=== PATIENT | male | born 1970 | race Caucasian/White ===

== ENCOUNTER 2017-12-07 12:30 | Inpatient (IN) | payer MEDICAID ==
[~2017-12-07] VITALS: Ht 175.3 cm; Wt 147.4 kg
[~2017-12-07 12:30] MED LIST: ALBU2.5V10 INH; EPIN0.3P3 SQ; GUAI120L55 PO; LANTUS SQ; LIDO700A32 TOP; LISI-222 PO; MELO-100 PO; METF500T6 PO; NICO-687 TOP; ONDA8TAB9 PO; SAXA5TAB PO; ZOL50T PO
[2017-12-07 13:17] LABS: CLARITY,URINE CLEAR (Clear); COLOR,URINE STRAW (Yellow); GLUCOSE, URINE >=1000 mg/dl (Neg); KETONES,URINE NEGATIVE (Neg); LEUKOCYTE ESTERASE ,URINE NEGATIVE (Neg); NITRITES, URINE NEGATIVE (Neg); OCCULT BLOOD,URINE NEGATIVE (Neg); PROTEIN,URINE NEGATIVE (Neg); UROBILINOGEN,URINE 0.2 E.U/dL (0.2-1.0)
[2017-12-07 13:19] LABS: UA COLLECTION TYPE CLN CATCH MIDSTREAM
[2017-12-07 13:23] LABS: BASOPHILS % (AUTO) 0.2 % (0-1); EOSINOPHILS # (AUTO) 7.9 X10'3 (0-0.9); HEMATOCRIT 46.7 % (42.0-52.0); HEMOGLOBIN 15.9 g/dl (14.0-17.9); LYMPHOCYTES # (AUTO) 3.1 X10'3 (1.1-4.8); LYMPHOCYTES % (AUTO) 14.7 % (21-51); MEAN CORPUSCULAR HEMOGLOBIN 30.7 PG (27.0-31.0); MEAN CORPUSCULAR HGB CONC 34.1 % (33.0-36.5); MEAN CORPUSCULAR VOLUME 90.1 FL (78-98); MEAN PLATELET VOLUME 7.1 FL (7.4-10.4); MONOCYTES # (AUTO) 0.6 X10'3 (0-0.9); MONOCYTES % (AUTO) 2.8 % (2-12); NEUTROPHILS # (AUTO) 9.7 X10'3 (1.8-7.7); NEUTROPHILS % (AUTO) 45.5 % (42-75); PLATELET COUNT 329 X10'3 (140-440); RED BLOOD COUNT 5.19 X10'6 (4.70-6.10); RED CELL DISTRIBUTION WIDTH 14.7 % (11.5-14.5); WHITE BLOOD COUNT 21.4 X10'3 (4.5-11.0)
[2017-12-07 13:29] LABS: BACTERIA,URINE NONE SEEN /HPF (Neg); MUCUS STRANDS NONE SEEN /LPF (Neg); RBC,URINE NONE SEEN /HPF (0-2); SQUAMOUS EPITHELIAL CELL,UR NONE SEEN /LPF (FEW); WBC,URINE NONE SEEN /HPF (0-4)
[2017-12-07 13:35] LABS: INR 1.1 INR; PARTIAL THROMBOPLASTIN TIME 25 SECONDS (22-32); PROTHROMBIN TIME 11.3 SECONDS (9.0-12.0)
[2017-12-07 13:36] LABS: EOSINOPHILS % (AUTO) 36.8 % (0-6)
[2017-12-07 13:41] LABS: ALANINE AMINOTRANSFERASE 70 U/L (12-78); ALBUMIN 3.8 G/DL (3.4-5.0); ALBUMIN/GLOBULIN RATIO 0.9 (1.1-1.5); ALKALINE PHOSPHATASE 109 IU/L (46-116); ANION GAP 12 (8-16); ASPARTATE AMINO TRANSFERASE 27 U/L (10-37); BILIRUBIN,TOTAL 0.2 MG/DL (0.1-1.0); BLOOD UREA NITROGEN 10 MG/DL (7-18); BUN/CREATININE RATIO 9.3 (5.4-32.0); CALCIUM 8.9 MG/DL (8.5-10.1); CHLORIDE 97 MMOL/L (99-107); CREATININE 1.07 MG/DL (0.60-1.10); GLUCOSE 334 MG/DL (70-104); POTASSIUM 4.2 MMOL/L (3.5-5.1); SODIUM 131 MMOL/L (135-145); TOTAL CARBON DIOXIDE 22.4 MMOL/L (24-32); TOTAL PROTEIN 8.2 G/DL (6.4-8.2); eGFR 75 ML/MIN
[2017-12-07] MEDS ORDERED: metroNIDAZOLE-Flagyl 500mg/NS 100 ML IV STA (13:42)
[2017-12-07] MEDS ORDERED: morphine 4 MG/ML inj SYRINge IV PRN (13:45)
[2017-12-07] MEDS ORDERED: ondansetron/PF 4mg/2ml inj IV ONE (13:45)
[2017-12-07] MEDS ORDERED: normal saline 1000ML IV soln IVB ONE (13:45)
[2017-12-07] MEDS ORDERED: normal saline 1000ML IV soln IV ONE (13:55)
[2017-12-07] MEDS: ciprofloxacin lact 400MG/200ML 200 ML IV SCH ×2 (15:13→20:13)
[2017-12-07] MEDS ORDERED: mag hydrox/Alum hydrox/simeth 30ml oral suspension PO PRN (16:45)
[2017-12-07] MEDS ORDERED: magnesium 4gm in 100ml NS 100 ML IV PRN (16:45)
[2017-12-07] MEDS ORDERED: potassium Cl 20 mEq SR tablet PO PRN ×2 (16:45)
[2017-12-07] MEDS ORDERED: ondansetron/PF 4mg/2ml inj IV PRN (16:45)
[2017-12-07] MEDS ORDERED: magnesium 2GM in 50ml NS 50 ML IV PRN (16:45)
[2017-12-07] MEDS ORDERED: potassium Cl 40MEQ/NS 500ml 500 ML IV PRN ×2 (16:45)
[2017-12-07] MEDS ORDERED: magnesium Cl slow-release 64mg tablet PO PRN (16:45)
[2017-12-07] MEDS ORDERED: magnesium hydroxide 30ml (MOM) UD suspension PO PRN (16:45)
[2017-12-07] MEDS ORDERED: CefTRIAXone/D5W-Rocephin 1gm 50 ML IV SCH (16:50)
[2017-12-07] MEDS: normal saline 1000ml 1,000 ML IV SCH ×2 (17:17→21:18)
[2017-12-07] MEDS ORDERED: dextrose 50%-water 50ml dispensing syringe IV PRN ×2 (17:25)
[2017-12-07] MEDS ORDERED: MESSAGE TO PHARMACY PO ONE (17:25)
[2017-12-07] MEDS ORDERED: dextrose ORAL solution 15 GM/59 ML bottle PO PRN ×2 (17:25)
[2017-12-07] MEDS ORDERED: glucagon, human recombinant 1mg kit SUBCUT PRN (17:25)
[2017-12-07 17:40] LABS: HEMOGLOBIN A1C 9.4 % (4.5-6.2)
[2017-12-07] MEDS: levoFLOXACIN-Levaquin 500mg/D5 100 ML IV SCH (18:33)
[2017-12-07] MEDS: heparin, porcine 5000 units/ml vial SQ SCH (20:17)
[2017-12-07 20:30] VITALS: BP 147/79
[2017-12-07] MEDS: diatr meglu/diatrizoate 30ml oral sol.-(3 dose) bottle PO SCH (20:54)
[2017-12-07] MEDS: insulin glargine (Lantus) pen - multi-dose SQ SCH (21:07)
[2017-12-07] MEDS: HYDROmorphone 1 mg/ml syringe IV PRN (21:18)
[2017-12-07] MEDS: metroNIDAZOLE-Flagyl 500mg/NS 100 ML IV SCH (23:22)
[2017-12-08] VITALS: BP 136/76
[2017-12-08 07:00] VITALS: BP 129/64
[2017-12-08] MEDS: diatr meglu/diatrizoate 30ml oral sol.-(3 dose) bottle PO SCH ×2 (07:46→10:20)
[2017-12-08] MEDS: heparin, porcine 5000 units/ml vial SQ SCH ×2 (07:47→19:14)
[2017-12-08] MEDS: metroNIDAZOLE-Flagyl 500mg/NS 100 ML IV SCH ×3 (07:47→23:45)
[2017-12-08 07:55] LABS: BASOPHILS # (AUTO) 0.1 X10'3 (0-0.2); BASOPHILS % (AUTO) 0.5 % (0-1); EOSINOPHILS % (AUTO) 39.1 % (0-6); HEMATOCRIT 40.3 % (42.0-52.0); HEMOGLOBIN 13.6 g/dl (14.0-17.9); LYMPHOCYTES % (AUTO) 16.7 % (21-51); MEAN CORPUSCULAR HEMOGLOBIN 30.3 PG (27.0-31.0); MEAN CORPUSCULAR HGB CONC 33.6 % (33.0-36.5); MEAN CORPUSCULAR VOLUME 90.3 FL (78-98); MONOCYTES # (AUTO) 0.5 X10'3 (0-0.9); MONOCYTES % (AUTO) 2.8 % (2-12); NEUTROPHILS # (AUTO) 7.3 X10'3 (1.8-7.7); NEUTROPHILS % (AUTO) 40.9 % (42-75); PLATELET COUNT 199 X10'3 (140-440); RED BLOOD COUNT 4.47 X10'6 (4.70-6.10); RED CELL DISTRIBUTION WIDTH 14.5 % (11.5-14.5); WHITE BLOOD COUNT 17.8 X10'3 (4.5-11.0)
[2017-12-08] MEDS: K and/or MAG REPLACEMENT MC SCH (08:00)
[2017-12-08] MEDS: ciprofloxacin lact 400MG/200ML 200 ML IV SCH ×2 (08:00→19:12)
[2017-12-08] MEDS: normal saline 1000ml 1,000 ML IV SCH ×2 (09:20→22:43)
[2017-12-08] MEDS ORDERED: iohexol 300mg/ml 100ml inj. ONE (10:30)
[2017-12-08] MEDS: MESSAGE TO NURSING PO SCH (10:40)
[2017-12-08 11:00] VITALS: BP 134/78
[2017-12-08] MEDS ORDERED: METF-436 PO (11:36)
[2017-12-08] MEDS ORDERED: SAXA5TAB PO (11:42)
[2017-12-08] MEDS ORDERED: SERT25TA PO ×2 (11:46)
[2017-12-08] MEDS ORDERED: LISI-600 PO (11:48)
[2017-12-08] MEDS ORDERED: INSU100I31 SQ (11:49)
[2017-12-08] MEDS ORDERED: INSU100I7 SQ (11:52)
[2017-12-08] MEDS: levoFLOXACIN-Levaquin 500mg/D5 100 ML IV SCH (12:00)
[2017-12-08 12:35] LABS: ALANINE AMINOTRANSFERASE 59 U/L (12-78); ALBUMIN/GLOBULIN RATIO 0.8 (1.1-1.5); ALKALINE PHOSPHATASE 80 IU/L (46-116); ANION GAP 10 (8-16); ASPARTATE AMINO TRANSFERASE 29 U/L (10-37); BILIRUBIN,TOTAL 0.2 MG/DL (0.1-1.0); BLOOD UREA NITROGEN 6 MG/DL (7-18); BUN/CREATININE RATIO 6.5 (5.4-32.0); CHLORIDE 103 MMOL/L (99-107); CREATININE 0.93 MG/DL (0.60-1.10); GLUCOSE 206 MG/DL (70-104); MAGNESIUM 1.7 MG/DL (1.5-2.4); POTASSIUM 4.1 MMOL/L (3.5-5.1); SODIUM 137 MMOL/L (135-145); TOTAL CARBON DIOXIDE 23.6 MMOL/L (24-32); TOTAL PROTEIN 6.7 G/DL (6.4-8.2); eGFR 88 ML/MIN
[2017-12-08] MEDS: insulin Lispro (HumaLOG) vial - multi-dose SQ SCH ×2 (14:05→19:10)
[2017-12-08 16:48] LABS: C DIFF ANTIGEN NEGATIVE (NEGATIVE); C DIFF SPECIMEN=DIARRHEA? ACCEPTABLE; C DIFFICILE TOXINS A&B NEGATIVE (Neg)
[2017-12-08 18:00] VITALS: BP 150/84
[2017-12-08] MEDS: lactobacillus rhamnosus 10,000 MMU CELLS/CAPSULE PO SCH (19:12)
[2017-12-08] MEDS: insulin glargine (Lantus) pen - multi-dose SQ SCH (21:16)
[2017-12-09] VITALS: BP 137/75
[2017-12-09] MEDS: normal saline 1000ml 1,000 ML IV SCH ×2 (02:31→21:26)
[2017-12-09 05:49] LABS: ALANINE AMINOTRANSFERASE 50 U/L (12-78); ALBUMIN 2.9 G/DL (3.4-5.0); ALBUMIN/GLOBULIN RATIO 0.8 (1.1-1.5); ALKALINE PHOSPHATASE 75 IU/L (46-116); ANION GAP 6 (8-16); ASPARTATE AMINO TRANSFERASE 19 U/L (10-37); BILIRUBIN,TOTAL 0.2 MG/DL (0.1-1.0); BLOOD UREA NITROGEN 8 MG/DL (7-18); BUN/CREATININE RATIO 8.2 (5.4-32.0); CALCIUM 8.5 MG/DL (8.5-10.1); CHLORIDE 106 MMOL/L (99-107); CREATININE 0.98 MG/DL (0.60-1.10); GLUCOSE 156 MG/DL (70-104); MAGNESIUM 1.8 MG/DL (1.5-2.4); POTASSIUM 3.9 MMOL/L (3.5-5.1); SODIUM 139 MMOL/L (135-145); TOTAL CARBON DIOXIDE 26.6 MMOL/L (24-32); TOTAL PROTEIN 6.4 G/DL (6.4-8.2); eGFR 83 ML/MIN
[2017-12-09 05:56] LABS: BASOPHILS % (AUTO) 0.3 % (0-1); EOSINOPHILS # (AUTO) 5.9 X10'3 (0-0.9); EOSINOPHILS % (AUTO) 38.9 % (0-6); HEMATOCRIT 37.2 % (42.0-52.0); HEMOGLOBIN 12.8 g/dl (14.0-17.9); LYMPHOCYTES # (AUTO) 3.2 X10'3 (1.1-4.8); LYMPHOCYTES % (AUTO) 20.9 % (21-51); MEAN CORPUSCULAR HEMOGLOBIN 30.7 PG (27.0-31.0); MEAN CORPUSCULAR HGB CONC 34.3 % (33.0-36.5); MEAN CORPUSCULAR VOLUME 89.4 FL (78-98); MEAN PLATELET VOLUME 7.3 FL (7.4-10.4); MONOCYTES # (AUTO) 0.7 X10'3 (0-0.9); MONOCYTES % (AUTO) 4.9 % (2-12); NEUTROPHILS # (AUTO) 5.3 X10'3 (1.8-7.7); PLATELET COUNT 256 X10'3 (140-440); RED BLOOD COUNT 4.16 X10'6 (4.70-6.10); RED CELL DISTRIBUTION WIDTH 14.2 % (11.5-14.5); WHITE BLOOD COUNT 15.2 X10'3 (4.5-11.0)
[2017-12-09] MEDS ORDERED: NORMAL SALINE IV ONE (07:00)
[2017-12-09] MEDS ORDERED: SINCALIDE IV ONE (07:00)
[2017-12-09 07:28] VITALS: BP 124/67
[2017-12-09] MEDS: K and/or MAG REPLACEMENT MC SCH (08:00)
[2017-12-09] MEDS: lactobacillus rhamnosus 10,000 MMU CELLS/CAPSULE PO SCH ×2 (08:00→19:06)
[2017-12-09] MEDS: heparin, porcine 5000 units/ml vial SQ SCH ×2 (08:00→19:06)
[2017-12-09] MEDS: ciprofloxacin lact 400MG/200ML 200 ML IV SCH ×2 (08:00→13:44)
[2017-12-09 11:00] VITALS: BP 134/69
[2017-12-09] MEDS: metroNIDAZOLE-Flagyl 500mg/NS 100 ML IV SCH ×2 (11:02→16:00)
[2017-12-09] MEDS: levoFLOXACIN-Levaquin 500mg/D5 100 ML IV SCH (12:17)
[2017-12-09] MEDS: insulin Lispro (HumaLOG) vial - multi-dose SQ SCH ×2 (13:49→19:05)
[2017-12-09] MEDS: MESSAGE TO NURSING PO SCH (19:15)
[2017-12-09 20:00] VITALS: BP 128/71
[2017-12-09] MEDS: insulin glargine (Lantus) pen - multi-dose SQ SCH (21:22)
[2017-12-10] VITALS: BP 119/66
[2017-12-10] MEDS: metroNIDAZOLE-Flagyl 500mg/NS 100 ML IV SCH ×4 (00:06→23:47)
[2017-12-10 05:20] LABS: BASOPHILS % (AUTO) 0.3 % (0-1); EOSINOPHILS # (AUTO) 4.7 X10'3 (0-0.9); HEMATOCRIT 37.4 % (42.0-52.0); HEMOGLOBIN 12.7 g/dl (14.0-17.9); LYMPHOCYTES # (AUTO) 2.9 X10'3 (1.1-4.8); LYMPHOCYTES % (AUTO) 18.8 % (21-51); MEAN CORPUSCULAR HEMOGLOBIN 30.9 PG (27.0-31.0); MEAN CORPUSCULAR VOLUME 90.9 FL (78-98); MONOCYTES # (AUTO) 0.6 X10'3 (0-0.9); MONOCYTES % (AUTO) 4.2 % (2-12); NEUTROPHILS % (AUTO) 45.7 % (42-75); PLATELET COUNT 256 X10'3 (140-440); RED BLOOD COUNT 4.12 X10'6 (4.70-6.10); RED CELL DISTRIBUTION WIDTH 14.7 % (11.5-14.5); WHITE BLOOD COUNT 15.3 X10'3 (4.5-11.0)
[2017-12-10 05:41] LABS: ALANINE AMINOTRANSFERASE 44 U/L (12-78); ALBUMIN 2.8 G/DL (3.4-5.0); ALBUMIN/GLOBULIN RATIO 0.8 (1.1-1.5); ALKALINE PHOSPHATASE 77 IU/L (46-116); ANION GAP 6 (8-16); ASPARTATE AMINO TRANSFERASE 18 U/L (10-37); BILIRUBIN,TOTAL 0.3 MG/DL (0.1-1.0); BLOOD UREA NITROGEN 9 MG/DL (7-18); BUN/CREATININE RATIO 10.2 (5.4-32.0); CALCIUM 8.5 MG/DL (8.5-10.1); CHLORIDE 106 MMOL/L (99-107); CREATININE 0.88 MG/DL (0.60-1.10); GLUCOSE 164 MG/DL (70-104); MAGNESIUM 1.7 MG/DL (1.5-2.4); SODIUM 139 MMOL/L (135-145); TOTAL PROTEIN 6.3 G/DL (6.4-8.2); eGFR > 90 ML/MIN
[2017-12-10 07:00] VITALS: BP 149/66
[2017-12-10] MEDS: K and/or MAG REPLACEMENT MC SCH (07:13)
[2017-12-10] MEDS: MESSAGE TO NURSING PO SCH (07:14)
[2017-12-10] MEDS: heparin, porcine 5000 units/ml vial SQ SCH ×2 (07:25→21:28)
[2017-12-10] MEDS: lactobacillus rhamnosus 10,000 MMU CELLS/CAPSULE PO SCH ×2 (07:25→21:27)
[2017-12-10] MEDS: levoFLOXACIN-Levaquin 500mg/D5 100 ML IV SCH (08:30)
[2017-12-10] MEDS: normal saline 1000ml 1,000 ML IV SCH ×3 (08:31→23:48)
[2017-12-10] MEDS: insulin Lispro (HumaLOG) vial - multi-dose SQ SCH ×3 (08:41→19:17)
[2017-12-10] MEDS: HYDROmorphone 1 mg/ml syringe IV PRN (10:10)
[2017-12-10 12:03] LABS: LIPASE < 50 U/L (73-393)
[2017-12-10] MEDS: pantoprazole 40mg Tablet.DR PO SCH (14:45)
[2017-12-10 20:00] VITALS: BP 142/78
[2017-12-10] MEDS: insulin glargine (Lantus) pen - multi-dose SQ SCH (21:31)
[2017-12-11] VITALS: BP 113/60
[2017-12-11 05:24] LABS: BASOPHILS # (AUTO) 0.1 X10'3 (0-0.2); BASOPHILS % (AUTO) 0.5 % (0-1); EOSINOPHILS # (AUTO) 6.4 X10'3 (0-0.9); EOSINOPHILS % (AUTO) 37.6 % (0-6); HEMATOCRIT 37.7 % (42.0-52.0); HEMOGLOBIN 12.8 g/dl (14.0-17.9); LYMPHOCYTES # (AUTO) 3.5 X10'3 (1.1-4.8); LYMPHOCYTES % (AUTO) 20.5 % (21-51); MEAN CORPUSCULAR HEMOGLOBIN 30.4 PG (27.0-31.0); MEAN CORPUSCULAR HGB CONC 33.8 % (33.0-36.5); MEAN CORPUSCULAR VOLUME 89.9 FL (78-98); MEAN PLATELET VOLUME 7.2 FL (7.4-10.4); MONOCYTES # (AUTO) 0.6 X10'3 (0-0.9); MONOCYTES % (AUTO) 3.5 % (2-12); NEUTROPHILS # (AUTO) 6.5 X10'3 (1.8-7.7); NEUTROPHILS % (AUTO) 37.9 % (42-75); PLATELET COUNT 272 X10'3 (140-440); RED BLOOD COUNT 4.19 X10'6 (4.70-6.10); RED CELL DISTRIBUTION WIDTH 14.4 % (11.5-14.5)
[2017-12-11 05:42] LABS: ALANINE AMINOTRANSFERASE 50 U/L (12-78); ALBUMIN 2.8 G/DL (3.4-5.0); ALBUMIN/GLOBULIN RATIO 0.8 (1.1-1.5); ALKALINE PHOSPHATASE 76 IU/L (46-116); ANION GAP 10 (8-16); ASPARTATE AMINO TRANSFERASE 34 U/L (10-37); BILIRUBIN,TOTAL 0.2 MG/DL (0.1-1.0); BLOOD UREA NITROGEN 9 MG/DL (7-18); BUN/CREATININE RATIO 9.8 (5.4-32.0); CALCIUM 8.5 MG/DL (8.5-10.1); CHLORIDE 104 MMOL/L (99-107); CREATININE 0.92 MG/DL (0.60-1.10); GLUCOSE 173 MG/DL (70-104); MAGNESIUM 1.5 MG/DL (1.5-2.4); SODIUM 139 MMOL/L (135-145); TOTAL CARBON DIOXIDE 25.1 MMOL/L (24-32); TOTAL PROTEIN 6.2 G/DL (6.4-8.2); eGFR 89 ML/MIN
[2017-12-11 07:14] VITALS: BP 122/78
[2017-12-11] MEDS: K and/or MAG REPLACEMENT MC SCH (08:00)
[2017-12-11] MEDS: metroNIDAZOLE-Flagyl 500mg/NS 100 ML IV SCH ×2 (08:08→17:36)
[2017-12-11] MEDS: levoFLOXACIN-Levaquin 500mg/D5 100 ML IV SCH (08:09)
[2017-12-11] MEDS: heparin, porcine 5000 units/ml vial SQ SCH ×2 (08:09→21:29)
[2017-12-11] MEDS: lactobacillus rhamnosus 10,000 MMU CELLS/CAPSULE PO SCH ×2 (08:09→21:30)
[2017-12-11] MEDS: pantoprazole 40mg Tablet.DR PO SCH (08:09)
[2017-12-11] MEDS: insulin Lispro (HumaLOG) vial - multi-dose SQ SCH ×3 (08:20→19:13)
[2017-12-11] MEDS: normal saline 1000ml 1,000 ML IV SCH (11:58)
[2017-12-11 14:09] LABS: HIV ANTIBODY 1&2 RAPID NON-REACTIVE (Neg)
[2017-12-11 15:27] LABS: CRYPTOSPORIDIUM AG NEGATIVE (Neg); GIARDIA LAMBLIA AG NEGATIVE (Neg)
[2017-12-11 20:00] VITALS: BP 139/87
[2017-12-11] MEDS: sertraline 50mg tablet PO SCH (21:30)
[2017-12-11] MEDS: insulin glargine (Lantus) pen - multi-dose SQ SCH (21:34)
[2017-12-12] MEDS: metroNIDAZOLE-Flagyl 500mg/NS 100 ML IV SCH ×2 (00:11→08:39)
[2017-12-12] MEDS: normal saline 1000ml 1,000 ML IV SCH ×2 (00:11→06:43)
[2017-12-12 05:35] LABS: BASOPHILS # (AUTO) 0.1 X10'3 (0-0.2); BASOPHILS % (AUTO) 0.5 % (0-1); EOSINOPHILS # (AUTO) 5.8 X10'3 (0-0.9); EOSINOPHILS % (AUTO) 35.4 % (0-6); HEMOGLOBIN 12.7 g/dl (14.0-17.9); MEAN CORPUSCULAR HGB CONC 34.3 % (33.0-36.5); MEAN CORPUSCULAR VOLUME 90.3 FL (78-98); MEAN PLATELET VOLUME 7.3 FL (7.4-10.4); MONOCYTES # (AUTO) 0.6 X10'3 (0-0.9); MONOCYTES % (AUTO) 3.4 % (2-12); NEUTROPHILS % (AUTO) 42.7 % (42-75); PLATELET COUNT 265 X10'3 (140-440); RED CELL DISTRIBUTION WIDTH 14.5 % (11.5-14.5); WHITE BLOOD COUNT 16.5 X10'3 (4.5-11.0)
[2017-12-12 05:42] LABS: ALANINE AMINOTRANSFERASE 55 U/L (12-78); ALBUMIN 2.9 G/DL (3.4-5.0); ALBUMIN/GLOBULIN RATIO 0.8 (1.1-1.5); ALKALINE PHOSPHATASE 76 IU/L (46-116); ANION GAP 8 (8-16); ASPARTATE AMINO TRANSFERASE 31 U/L (10-37); BILIRUBIN,TOTAL 0.3 MG/DL (0.1-1.0); BLOOD UREA NITROGEN 9 MG/DL (7-18); BUN/CREATININE RATIO 10.1 (5.4-32.0); CALCIUM 8.7 MG/DL (8.5-10.1); CHLORIDE 106 MMOL/L (99-107); CREATININE 0.89 MG/DL (0.60-1.10); GLUCOSE 119 MG/DL (70-104); MAGNESIUM 1.6 MG/DL (1.5-2.4); POTASSIUM 3.8 MMOL/L (3.5-5.1); SODIUM 139 MMOL/L (135-145); TOTAL CARBON DIOXIDE 25.3 MMOL/L (24-32); TOTAL PROTEIN 6.4 G/DL (6.4-8.2); eGFR > 90 ML/MIN
[2017-12-12 07:00] VITALS: BP 123/66
[2017-12-12] MEDS: K and/or MAG REPLACEMENT MC SCH (08:00)
[2017-12-12] MEDS: insulin Lispro (HumaLOG) vial - multi-dose SQ SCH (08:35)
[2017-12-12] MEDS: levoFLOXACIN-Levaquin 500mg/D5 100 ML IV SCH (08:39)
[2017-12-12] MEDS: sertraline 50mg tablet PO SCH (08:42)
[2017-12-12] MEDS: lactobacillus rhamnosus 10,000 MMU CELLS/CAPSULE PO SCH (08:42)
[2017-12-12] MEDS: pantoprazole 40mg Tablet.DR PO SCH (08:42)
[2017-12-12] MEDS: heparin, porcine 5000 units/ml vial SQ SCH (08:42)
== END 2017-12-12 12:40 | disposition home or self-care (01) | DRG 720 ==
LOC: ER 12:31 → ED HOLD 16:42 → SUR 3N 20:25
PROVIDERS: ADMIT Internal Medicine; ATTEND Family Medicine
PROC: 5A09357 Assistance with Respiratory Ventilation, Less than 24 Consecutive Hours, Continuous Positive Airway Pressure (ICD-10-PCS; principal; 2017-12-07)
PROC: 5A09357 Assistance with Respiratory Ventilation, Less than 24 Consecutive Hours, Continuous Positive Airway Pressure (ICD-10-PCS; 2017-12-08)
PROC: BW211ZZ Computerized Tomography (CT Scan) of Abdomen and Pelvis using Low Osmolar Contrast (ICD-10-PCS; 2017-12-08)
PROC: CF141ZZ Planar Nuclear Medicine Imaging of Gallbladder using Technetium 99m (Tc-99m) (ICD-10-PCS; 2017-12-09)
DX: A41.9 Sepsis, unspecified organism (principal); E11.65 Type 2 diabetes mellitus with hyperglycemia; I10 Essential (primary) hypertension; E66.01 Morbid (severe) obesity due to excess calories; G89.29 Other chronic pain; K52.9 Noninfective gastroenteritis and colitis, unspecified; K57.90 Diverticulosis of intestine, part unspecified, without perforation or abscess without bleeding; Z68.42 Body mass index [BMI] 45.0-49.9, adult; Z88.6 Allergy status to analgesic agent; Z88.8 Allergy status to other drugs, medicaments and biological substances; Z88.0 Allergy status to penicillin; Z79.899 Other long term (current) drug therapy; Z87.891 Personal history of nicotine dependence; Z56.0 Unemployment, unspecified; Z79.4 Long term (current) use of insulin; Z79.84 Long term (current) use of oral hypoglycemic drugs
CPT/HCPCS: 36415; 71045; 74176; 74177; 78227; 80053; 81001; 82948; 83036; 83605; 83690; 83735; 84145; 85025; 85610; 85651; 85730; 86703; 87040; 87045; 87046; 87070; 87324; 87328; 87329; 87336; 87449; 89055; 94660; 94760; 96365; 96375; 99285; A9537; J0744; J1170; J1644; J1815; J1956; J2270; J2405; J2805; J3490; J7030; J7040; Q9963; Q9967

== ENCOUNTER 2018-03-14 14:39 | Emergency (ER) | payer MEDICAID ==
[~2018-03-14] VITALS: Ht 175.3 cm; Wt 145.0 kg
[~2018-03-14 14:39] MED LIST changes: -ALBU2.5V10 INH; +COLC1TAB2 PO; -EPIN0.3P3 SQ; -GUAI120L55 PO; +INSU100I7 SQ; -LANTUS SQ; -LIDO700A32 TOP; -LISI-222 PO; -MELO-100 PO; +METF-436 PO; -METF500T6 PO; -NICO-687 TOP; -ONDA8TAB9 PO; +SERT25TA PO; -ZOL50T PO
[2018-03-14 16:05] VITALS: BP 156/60
[2018-03-14] MEDS ORDERED: SULF1TAB49 PO (16:37)
== END 2018-03-14 17:45 | disposition home or self-care (01) ==
LOC: ER 14:39
DX: L03.115 Cellulitis of right lower limb (principal); I10 Essential (primary) hypertension; E11.9 Type 2 diabetes mellitus without complications; G89.29 Other chronic pain; Z88.0 Allergy status to penicillin; Z88.5 Allergy status to narcotic agent; Z79.2 Long term (current) use of antibiotics; Z79.84 Long term (current) use of oral hypoglycemic drugs; Z79.899 Other long term (current) drug therapy; Z56.0 Unemployment, unspecified
CPT/HCPCS: 93971; 99284

== ENCOUNTER 2018-07-20 10:47 | Emergency (ER) | payer MEDICAID ==
[~2018-07-20] VITALS: Ht 175.3 cm; Wt 147.0 kg
[2018-07-20 12:12] LABS: BASOPHILS % (AUTO) 0.3 % (0-1); EOSINOPHILS # (AUTO) 1.1 X10'3 (0-0.9); EOSINOPHILS % (AUTO) 9.3 % (0-6); HEMOGLOBIN 14.5 g/dl (14.0-17.9); LYMPHOCYTES # (AUTO) 2.1 X10'3 (1.1-4.8); LYMPHOCYTES % (AUTO) 17.2 % (21-51); MEAN CORPUSCULAR HGB CONC 33.8 % (33.0-36.5); MEAN CORPUSCULAR VOLUME 88.7 FL (78-98); MEAN PLATELET VOLUME 6.8 FL (7.4-10.4); MONOCYTES # (AUTO) 0.4 X10'3 (0-0.9); MONOCYTES % (AUTO) 3.5 % (2-12); NEUTROPHILS # (AUTO) 8.4 X10'3 (1.8-7.7); NEUTROPHILS % (AUTO) 69.7 % (42-75); PLATELET COUNT 368 X10'3 (140-440); RED BLOOD COUNT 4.85 X10'6 (4.70-6.10); RED CELL DISTRIBUTION WIDTH 14.2 % (11.5-14.5); WHITE BLOOD COUNT 12.1 X10'3 (4.5-11.0)
[2018-07-20 12:27] LABS: ALANINE AMINOTRANSFERASE 36 U/L (12-78); ALBUMIN 3.2 G/DL (3.4-5.0); ALBUMIN/GLOBULIN RATIO 0.8 (1.1-1.5); ALKALINE PHOSPHATASE 86 IU/L (46-116); ANION GAP 10 (8-16); ASPARTATE AMINO TRANSFERASE 11 U/L (10-37); BILIRUBIN,TOTAL 0.3 MG/DL (0.1-1.0); BLOOD UREA NITROGEN 7 MG/DL (7-18); BUN/CREATININE RATIO 8.6 (5.4-32.0); CALCIUM 8.4 MG/DL (8.5-10.1); CHLORIDE 98 MMOL/L (99-107); CREATININE 0.81 MG/DL (0.60-1.10); GLUCOSE 265 MG/DL (70-104); LIPASE < 50 U/L (73-393); POTASSIUM 4.1 MMOL/L (3.5-5.1); SODIUM 133 MMOL/L (135-145); TOTAL CARBON DIOXIDE 25.1 MMOL/L (24-32); TOTAL PROTEIN 7.4 G/DL (6.4-8.2); eGFR > 90 ML/MIN
[2018-07-20 13:15] LABS: CLARITY,URINE CLEAR (Clear); COLOR,URINE YELLOW (Yellow); GLUCOSE, URINE 250 mg/dl (Neg); KETONES,URINE NEGATIVE (Neg); LEUKOCYTE ESTERASE ,URINE NEGATIVE (Neg); NITRITES, URINE NEGATIVE (Neg); OCCULT BLOOD,URINE NEGATIVE (Neg); PROTEIN,URINE NEGATIVE (Neg); UROBILINOGEN,URINE 0.2 E.U/dL (0.2-1.0)
[2018-07-20 13:18] LABS: UA COLLECTION TYPE NON-SPECIFIED
[2018-07-20 13:26] VITALS: BP 153/106
== END 2018-07-20 13:32 | disposition home or self-care (01) ==
LOC: ER 10:47
DX: K42.9 Umbilical hernia without obstruction or gangrene (principal); I10 Essential (primary) hypertension; E11.9 Type 2 diabetes mellitus without complications; F17.200 Nicotine dependence, unspecified, uncomplicated; Z98.890 Other specified postprocedural states; Z56.0 Unemployment, unspecified; Z88.0 Allergy status to penicillin; Z88.5 Allergy status to narcotic agent; Z79.4 Long term (current) use of insulin; Z79.899 Other long term (current) drug therapy
CPT/HCPCS: 36415; 74176; 80053; 81003; 83690; 85025; 99284

== ENCOUNTER 2019-08-31 15:22 | Emergency (ER) | payer MEDICAID ==
[~2019-08-31] VITALS: Ht 175.3 cm; Wt 142.3 kg
[2019-08-31] MEDS ORDERED: HYDROcodone/acetaminophen 10/325mg tab PO ONE (16:20)
[2019-08-31 16:58] LABS: BASOPHILS # (AUTO) 0.1 X10'3 (0-0.2); BASOPHILS % (AUTO) 0.5 % (0-1); EOSINOPHILS # (AUTO) 0.3 X10'3 (0-0.9); EOSINOPHILS % (AUTO) 2.2 % (0-6); HEMATOCRIT 41.8 % (42.0-52.0); HEMOGLOBIN 14.3 g/dl (14.0-17.9); LYMPHOCYTES # (AUTO) 1.6 X10'3 (1.1-4.8); LYMPHOCYTES % (AUTO) 11.5 % (21-51); MEAN CORPUSCULAR HEMOGLOBIN 30.4 PG (27.0-31.0); MEAN CORPUSCULAR HGB CONC 34.2 g/dL (33.0-36.5); MEAN CORPUSCULAR VOLUME 88.8 FL (78-98); MEAN PLATELET VOLUME 7.3 FL (7.4-10.4); MONOCYTES # (AUTO) 0.7 X10'3 (0-0.9); MONOCYTES % (AUTO) 4.8 % (2-12); NEUTROPHILS # (AUTO) 11.5 X10'3 (1.8-7.7); PLATELET COUNT 295 X10'3 (140-440); RED BLOOD COUNT 4.71 X10'6 (4.70-6.10); RED CELL DISTRIBUTION WIDTH 14.3 % (11.5-14.5); WHITE BLOOD COUNT 14.2 X10'3 (4.5-11.0)
[2019-08-31 17:20] LABS: ALANINE AMINOTRANSFERASE 32 U/L (12-78); ALBUMIN 3.5 G/DL (3.4-5.0); ALBUMIN/GLOBULIN RATIO 0.8 (1.1-1.5); ALKALINE PHOSPHATASE 99 IU/L (46-116); ANION GAP 9 (8-16); ASPARTATE AMINO TRANSFERASE 13 U/L (10-37); BILIRUBIN,TOTAL 0.4 MG/DL (0.1-1.0); BLOOD UREA NITROGEN 9 MG/DL (7-18); BUN/CREATININE RATIO 11.4 (5.4-32.0); CALCIUM 9.1 MG/DL (8.5-10.1); CHLORIDE 99 MMOL/L (99-107); CREATININE 0.79 MG/DL (0.60-1.10); GLUCOSE 272 MG/DL (70-104); SODIUM 134 MMOL/L (135-145); TOTAL CARBON DIOXIDE 26.5 MMOL/L (24-32); TOTAL PROTEIN 7.7 G/DL (6.4-8.2); eGFR > 90 ML/MIN
[2019-08-31] MEDS ORDERED: normal saline 1000ML IV soln IV ONE (17:50)
[2019-08-31] MEDS ORDERED: CefTRIAXone 2gm/D5W 50ml 50 ML IV ONE (17:50)
[2019-08-31] MEDS ORDERED: vancomycin/NS 1 GM ADD-VANTAGE 250 ML IV ONE (17:50)
[2019-08-31] MEDS ORDERED: iohexol 300mg/ml 100ml inj. ONE (17:52)
[2019-08-31] MEDS ORDERED: SULF1TAB49 PO (19:10)
[2019-08-31] MEDS ORDERED: CEPH-572 PO (19:10)
[2019-08-31 19:15] VITALS: BP 138/83
--- NOTE | 2019-08-31 19:29 | NUR ---
PT COMPLAINT OF ITCHING, FUZZY HEAD AND STUFFY NOSE AFTER INITIATION OF VANCO. NO SOB OR WHEEZES NOTED. VANCO DISCONTINUED. NOTIFIED.
[2019-08-31] MEDS ORDERED: diphenhydrAMINE 50 mg/ml inj IV ONE (19:30)
[2019-08-31] MEDS ORDERED: famotidine/PF 10 mg/ml inj IV ONE (19:30)
[2019-08-31] MEDS ORDERED: dexamethasone sod phosphate 10mg/ml inj IV STA (19:30)
== END 2019-08-31 20:40 | disposition home or self-care (01) ==
LOC: ER 15:23
DX: L02.11 Cutaneous abscess of neck (principal); E11.9 Type 2 diabetes mellitus without complications; I10 Essential (primary) hypertension; G89.29 Other chronic pain; Z56.0 Unemployment, unspecified; Z98.890 Other specified postprocedural states; Z88.0 Allergy status to penicillin; Z88.5 Allergy status to narcotic agent; Z79.899 Other long term (current) drug therapy; Z79.4 Long term (current) use of insulin
CPT/HCPCS: 36415; 70491; 80053; 83605; 84145; 85025; 93005; 96365; 96368; 96375; 99285; J0696; J1100; J1200; J3370; J3490; J7030; Q9967

== ENCOUNTER 2020-11-08 09:26 | Emergency (ER) | payer MEDICAID ==
[~2020-11-08] VITALS: Ht 175.3 cm; Wt 145.9 kg
[2020-11-08 11:11] LABS: BASOPHILS # (AUTO) 0.1 X10'3 (0-0.2); BASOPHILS % (AUTO) 0.5 % (0-1); EOSINOPHILS # (AUTO) 1.6 X10'3 (0-0.9); EOSINOPHILS % (AUTO) 10.9 % (0-6); HEMATOCRIT 43.2 % (42.0-52.0); HEMOGLOBIN 14.4 g/dl (14.0-17.9); LYMPHOCYTES # (AUTO) 2.5 X10'3 (1.1-4.8); LYMPHOCYTES % (AUTO) 17.1 % (21-51); MEAN CORPUSCULAR HEMOGLOBIN 30.5 PG (27.0-31.0); MEAN CORPUSCULAR HGB CONC 33.4 g/dL (33.0-36.5); MEAN CORPUSCULAR VOLUME 91.1 FL (78-98); MEAN PLATELET VOLUME 6.9 FL (7.4-10.4); MONOCYTES # (AUTO) 0.6 X10'3 (0-0.9); MONOCYTES % (AUTO) 4.3 % (2-12); NEUTROPHILS # (AUTO) 9.6 X10'3 (1.8-7.7); NEUTROPHILS % (AUTO) 67.2 % (42-75); PLATELET COUNT 286 X10'3 (140-440); RED BLOOD COUNT 4.74 X10'6 (4.70-6.10); RED CELL DISTRIBUTION WIDTH 14.2 % (11.5-14.5); WHITE BLOOD COUNT 14.4 X10'3 (4.5-11.0)
[2020-11-08 11:26] LABS: ALANINE AMINOTRANSFERASE 46 U/L (12-78); ALBUMIN 3.5 G/DL (3.4-5.0); ALBUMIN/GLOBULIN RATIO 0.8 (1.1-1.5); ALKALINE PHOSPHATASE 130 IU/L (46-116); AMYLASE 22 U/L (25-115); ANION GAP 11 (8-16); ASPARTATE AMINO TRANSFERASE 20 U/L (10-37); BILIRUBIN,TOTAL 0.2 MG/DL (0.1-1.0); BLOOD UREA NITROGEN 9 MG/DL (7-18); BUN/CREATININE RATIO 11.5 (5.4-32.0); CALCIUM 9.2 MG/DL (8.5-10.1); CHLORIDE 99 MMOL/L (99-107); CREATININE 0.78 MG/DL (0.60-1.10); GLUCOSE 292 MG/DL (70-104); LIPASE < 50 U/L (73-393); POTASSIUM 4.4 MMOL/L (3.5-5.1); SODIUM 133 MMOL/L (135-145); TOTAL CARBON DIOXIDE 23.4 MMOL/L (24-32); TOTAL PROTEIN 7.8 G/DL (6.4-8.2); eGFR > 90 ML/MIN
[2020-11-08 11:49] LABS: NUCLEATED RED BLOOD CELLS 2 /100WBC (0-0); TOTAL CELLS COUNTED 100
[2020-11-08 11:51] LABS: PLATELET ESTIMATE NORMAL
[2020-11-08] MEDS ORDERED: normal saline 1000ML IV soln IVB ONE (12:45)
[2020-11-08 14:48] LABS: CLARITY,URINE SLIGHTLY CLOUDY (Clear); COLOR,URINE STRAW (Yellow); GLUCOSE, URINE 250 mg/dl (Neg); KETONES,URINE NEGATIVE (Neg); LEUKOCYTE ESTERASE ,URINE NEGATIVE (Neg); NITRITES, URINE NEGATIVE (Neg); OCCULT BLOOD,URINE NEGATIVE (Neg); PROTEIN,URINE NEGATIVE (Neg); UROBILINOGEN,URINE 0.2 E.U/dL (0.2-1.0)
[2020-11-08 14:50] LABS: UA COLLECTION TYPE VOIDED
[2020-11-08 15:17] LABS: SQUAMOUS EPITHELIAL CELL,UR FEW /LPF (FEW)
[2020-11-08 15:18] VITALS: BP 119/63
[2020-11-08 15:18] LABS: BACTERIA,URINE NONE SEEN /HPF (Neg); RBC,URINE NONE SEEN /HPF (0-2); WBC,URINE NONE SEEN /HPF (0-4)
--- NOTE | 2020-11-08 15:18 | NUR ---
STOOL SAMPLE COLLECTED AND SENT TO LAB.
[2020-11-08] MEDS ORDERED: AZIT500T9 PO (15:38)
[2020-11-09 09:56] LABS: C DIFF ANTIGEN NEGATIVE (NEGATIVE); C DIFF SPECIMEN=DIARRHEA? ACCEPTABLE; C DIFFICILE TOXINS A&B NEGATIVE (Neg)
== END 2020-11-08 16:10 | disposition home or self-care (01) ==
LOC: ER 09:27
DX: R19.7 Diarrhea, unspecified (principal); I10 Essential (primary) hypertension; E11.9 Type 2 diabetes mellitus without complications; G89.29 Other chronic pain; Z98.890 Other specified postprocedural states; Z56.0 Unemployment, unspecified; Z88.0 Allergy status to penicillin; Z88.5 Allergy status to narcotic agent; Z79.2 Long term (current) use of antibiotics; Z79.899 Other long term (current) drug therapy
CPT/HCPCS: 36415; 80053; 81001; 82150; 83690; 85007; 85025; 87324; 87449; 96360; 99283; J7030

== ENCOUNTER 2020-12-03 22:12 | Inpatient (IN) | payer MEDICAID ==
[~2020-12-03] VITALS: Ht 175.3 cm; Wt 147.7 kg
[~2020-12-03 22:12] MED LIST changes: +AZIT500T9 PO
[2020-12-03 23:43] LABS: CLARITY,URINE CLEAR (Clear); COLOR,URINE YELLOW (Yellow); GLUCOSE, URINE >=1000 mg/dl (Neg); KETONES,URINE NEGATIVE (Neg); LEUKOCYTE ESTERASE ,URINE NEGATIVE (Neg); NITRITES, URINE NEGATIVE (Neg); OCCULT BLOOD,URINE TRACE-INTACT (Neg); PROTEIN,URINE NEGATIVE (Neg); UROBILINOGEN,URINE 0.2 E.U/dL (0.2-1.0)
[2020-12-03 23:47] LABS: BASOPHILS # (AUTO) 0.1 X10'3 (0-0.2); BASOPHILS % (AUTO) 0.7 % (0-1); EOSINOPHILS # (AUTO) 0.7 X10'3 (0-0.9); EOSINOPHILS % (AUTO) 6.5 % (0-6); HEMATOCRIT 41.2 % (42.0-52.0); LYMPHOCYTES # (AUTO) 2.6 X10'3 (1.1-4.8); LYMPHOCYTES % (AUTO) 24.7 % (21-51); MEAN CORPUSCULAR HEMOGLOBIN 31.1 PG (27.0-31.0); MEAN CORPUSCULAR HGB CONC 33.9 g/dL (33.0-36.5); MEAN CORPUSCULAR VOLUME 91.7 FL (78-98); MEAN PLATELET VOLUME 6.9 FL (7.4-10.4); MONOCYTES # (AUTO) 0.6 X10'3 (0-0.9); MONOCYTES % (AUTO) 5.5 % (2-12); NEUTROPHILS # (AUTO) 6.7 X10'3 (1.8-7.7); NEUTROPHILS % (AUTO) 62.6 % (42-75); PLATELET COUNT 332 X10'3 (140-440); RED BLOOD COUNT 4.49 X10'6 (4.70-6.10); RED CELL DISTRIBUTION WIDTH 14.5 % (11.5-14.5); WHITE BLOOD COUNT 10.7 X10'3 (4.5-11.0)
[2020-12-03 23:48] LABS: UA COLLECTION TYPE CLN CATCH MIDSTREAM
[2020-12-03 23:50] LABS: BACTERIA,URINE NONE SEEN /HPF (Neg); RBC,URINE 0-2 /HPF (0-2); SQUAMOUS EPITHELIAL CELL,UR FEW /LPF (FEW); WBC,URINE NONE SEEN /HPF (0-4)
[2020-12-04] VITALS (14 sets, daily range): BP systolic 112–151; BP diastolic 52–87
[2020-12-04 00:02] LABS: ALANINE AMINOTRANSFERASE 58 U/L (12-78); ALBUMIN 3.6 G/DL (3.4-5.0); ALBUMIN/GLOBULIN RATIO 0.9 (1.1-1.5); ALKALINE PHOSPHATASE 100 IU/L (46-116); ANION GAP 12 (8-16); ASPARTATE AMINO TRANSFERASE 17 U/L (10-37); BILIRUBIN,TOTAL 0.2 MG/DL (0.1-1.0); BLOOD UREA NITROGEN 13 MG/DL (7-18); BUN/CREATININE RATIO 12.5 (5.4-32.0); CALCIUM 8.8 MG/DL (8.5-10.1); CHLORIDE 101 MMOL/L (99-107); CREATININE 1.04 MG/DL (0.60-1.10); GLUCOSE 193 MG/DL (70-104); LIPASE < 50 U/L (73-393); SODIUM 137 MMOL/L (135-145); TOTAL CARBON DIOXIDE 23.6 MMOL/L (24-32); TOTAL PROTEIN 7.8 G/DL (6.4-8.2); eGFR 76 ML/MIN
--- NOTE | 2020-12-04 00:26 | NUR ---
pt to room assumed care.
[2020-12-04] MEDS ORDERED: ondansetron/PF 4mg/2ml inj IV ONE (00:40)
[2020-12-04] MEDS ORDERED: normal saline 1000ML IV soln IVB ONE ×2 (00:40→02:40)
[2020-12-04] MEDS ORDERED: ketorolac tromethamine 15mg/ml inj. IV ONE (00:40)
[2020-12-04] MEDS ORDERED: LISI20TA28 PO (01:30)
[2020-12-04] MEDS ORDERED: ceFOXitin 2GM-NS 100mL ADDvant 100 ML IV ONE (01:40)
[2020-12-04] MEDS ORDERED: ERTU5TAB PO (02:07)
[2020-12-04] MEDS ORDERED: INSU100I31 SQ (02:07)
[2020-12-04] MEDS ORDERED: DULA3PEN SQ (02:08)
[2020-12-04] MEDS ORDERED: morphine 2 MG/ML inj. syringe IV PRN ×2 (03:30→11:25)
[2020-12-04] MEDS ORDERED: MESSAGE TO PHARMACY PO ONE (03:30)
[2020-12-04] MEDS ORDERED: dextrose ORAL solution 15 GM/59 ML bottle PO PRN ×2 (03:30)
[2020-12-04] MEDS ORDERED: diphenhydrAMINE 50 mg/ml inj IV PRN (03:30)
[2020-12-04] MEDS ORDERED: mag hydrox/Alum hydrox/simeth 30ml oral suspension PO PRN (03:30)
[2020-12-04] MEDS ORDERED: magnesium hydroxide 30ml (MOM) UD suspension PO PRN (03:30)
[2020-12-04] MEDS ORDERED: bisacodyl 10mg suppository rectal RC PRN (03:30)
[2020-12-04] MEDS ORDERED: dextrose 50%-water 50ml dispensing syringe IV PRN ×2 (03:30)
[2020-12-04] MEDS ORDERED: diphenhydrAMINE 25mg capsule PO PRN (03:30)
[2020-12-04] MEDS ORDERED: insulin Lispro (HumaLOG) vial - multi-dose SQ SCH (03:30)
[2020-12-04] MEDS ORDERED: acetaminophen 325mg tablet PO PRN (03:30)
[2020-12-04] MEDS ORDERED: glucagon, human recombinant 1mg kit SUBCUT PRN (03:30)
[2020-12-04] MEDS ORDERED: acetaminophen 650mg rectal suppository RC PRN (03:30)
[2020-12-04] MEDS: normal saline 1000ml 1,000 ML IV SCH ×3 (03:30→22:50)
[2020-12-04 04:08] LABS: MAGNESIUM 1.9 MG/DL (1.5-2.4)
[2020-12-04 04:18] LABS: HEMOGLOBIN A1C 10.5 % (4.5-6.2)
[2020-12-04] MEDS: ondansetron/PF 4mg/2ml inj IV PRN ×2 (05:37→11:01)
[2020-12-04] MEDS: morphine 2 MG/ML inj. syringe IV PRN ×2 (05:37→11:02)
[2020-12-04] MEDS ORDERED: heparin, porcine 5000 units/ml vial SQ SCH (08:00)
[2020-12-04] MEDS ORDERED: ceFOXitin 1 GM/D5W 50mL IVPB 50 ML IV SCH (08:00)
[2020-12-04] MEDS ORDERED: levoFLOXACIN-Levaquin 750MG/D5 150 ML IV SCH (09:55)
[2020-12-04] MEDS ORDERED: metroNIDAZOLE-Flagyl 500mg/NS 100 ML IV SCH (09:55)
[2020-12-04] MEDS: lisinopril 20mg tablet PO SCH (10:05)
[2020-12-04] MEDS: sertraline 50mg tablet PO SCH (10:05)
[2020-12-04] MEDS: pantoprazole 40 MG vial IV SCH (10:11)
--- NOTE | 2020-12-04 10:40 | NUR ---
dR OLIVO IN RROM TO OR FOR APPENDIX REMOVAL AT NOON: NO COAGS, NO TYPE AND SCREEN NEEDED
--- NOTE | 2020-12-04 10:45 | NUR ---
TO MESSAGE COPY OF COVID VACCINATION CARD, IF NOT RECEIVED PRIOR TO SURGERY PER DR OLIVO, PATIENT WILL NEED COVID SWAB
--- NOTE | 2020-12-04 10:45 | NUR ---
URINAL EMPTIED: 800 ML DARK CLEAR URINE
--- NOTE | 2020-12-04 10:47 | NUR ---
LAST FOOD: 12/03/20 AT 1600 LAST PO LIQUID: 12/04/20 0100 SIP OF WATER
--- NOTE | 2020-12-04 10:50 | NUR ---
NICHOLAS VACCINATION PHOTO ON PHONE: J&J ON 10/22/20
[2020-12-04] MEDS ORDERED: SPIR100T5 PO (10:56)
[2020-12-04] MEDS ORDERED: METF-900 PO (10:56)
[2020-12-04] MEDS ORDERED: LIDOcaine 1% 30ml preserv. free vial ONE (11:21)
[2020-12-04] MEDS ORDERED: BUPIVAcaine/PF 2.5 mg/ml (0.25%) 30ml vial ONE (11:21)
[2020-12-04] MEDS ORDERED: BUPIVACAINE liposomal/PF 13.3 MG/ML vial IM ONE (11:21)
[2020-12-04] MEDS ORDERED: meperidine/PF 25mg/ml syringe IV PRN ×3 (11:25)
[2020-12-04] MEDS ORDERED: morphine 4 MG/ML inj SYRINge IV PRN (11:25)
[2020-12-04] MEDS ORDERED: proCHLORperazine 10 MG/2 ml inj IV PRN (11:25)
[2020-12-04] MEDS ORDERED: ringers solution, lacted 1,000 ML IV SCH (11:25)
[2020-12-04] MEDS ORDERED: ondansetron/PF 4mg/2ml inj IV PRN (11:25)
--- NOTE | 2020-12-04 11:33 | NUR ---
or called and report given, coming to get pt
[2020-12-04] MEDS ORDERED: midazolam 1 mg/ML 2ml injection ONE (11:54)
[2020-12-04] MEDS ORDERED: fentaNYL /PF 50mcg/ml 5ml ampule ONE (11:55)
[2020-12-04] MEDS ORDERED: propofol inj 20 ML IV ONE (11:56)
[2020-12-04] MEDS ORDERED: LIDOcaine 2% (20mg/ml) 5ml vial ONE (11:56)
[2020-12-04] MEDS ORDERED: LIDOcaine 4% LTA kit 4ml solution TP ONE (12:42)
[2020-12-04] MEDS ORDERED: rocuronium 10mg/ml inj IV ONE (12:42)
[2020-12-04] MEDS ORDERED: ondansetron/PF 4mg/2ml inj ONE (12:43)
[2020-12-04] MEDS ORDERED: dexamethasone sod phosphate 4mg/ml inj. ONE (12:47)
--- NOTE | 2020-12-04 13:54 | NUR ---
PT ARRIVED FROM OR VIA BED WITH ANESTHESIOLOGIST, DR BRADY-REPORT GIVEN, VSS, DENIES PAIN, WAKING UP, MOVING ALL EXTREMITIES, LAP SITES X 4-PRUDENCE WITH BANDAIDS-CDI, PIV 20G TO L A/C - LR RUNNING AT 100ML/HR, SCDS IN PLACE, DENIES N/V
[2020-12-04] MEDS ORDERED: HYDROcodone/acetaminophen 10/325mg tab PO PRN (13:55)
[2020-12-04] MEDS ORDERED: HYDROcodone/acetaminophen 5mg/325mg tablet PO PRN (13:55)
--- NOTE | 2020-12-04 14:50 | NUR ---
PT AWAKE AND ALERT, VSS, DENIES PAIN, PIV 20G TO L A/C JR RUNNING AT I00ML/HR, SCDS IN PLACE, LAP SITES X 4 - CDI, O2 VIA NC -2LTRS, REPORT CALLED TO CROW GALLEGOS-ALL QUESTIONS ANSWERED, PT TAKEN WITH ALL BELONGINGS TO ROOM 346A, BED LOW AND LOCKED, HOOKED UP TO MONITORS AND O2, AIDE IN ROOM, SPOKE WITH PRIMARY RN.
--- NOTE | 2020-12-04 15:02 | NUR ---
Received report from CROW Perkins. was transferred to floor A&O x4. No c/o pain or discomfort. will continue to monitor per protocol.
--- NOTE | 2020-12-04 18:36 | NUR ---
Problems reprioritized. Patient report given, questions answered & plan of care reviewed with CROW Wells.
--- NOTE | 2020-12-04 19:29 | NUR ---
Patient in room [facility] 346. I have received report from Samantha MARIA and had the opportunity to ask questions and assume patient care. Giovanny MARIA
[2020-12-04] MEDS: lactobacillus rhamnosus 10,000 MMU CELLS/CAPSULE PO SCH (20:07)
[2020-12-04] MEDS: heparin, porcine 5000 units/ml vial SQ SCH (20:08)
[2020-12-04] MEDS: insulin glargine (Lantus) pen - multi-dose SQ SCH (20:18)
[2020-12-04] MEDS ORDERED: temazepam 15mg capsule PO PRN (21:00)
[2020-12-05] VITALS: BP 124/72
[2020-12-05 06:35] LABS: BASOPHILS # (AUTO) 0.1 X10'3 (0-0.2); BASOPHILS % (AUTO) 0.5 % (0-1); EOSINOPHILS # (AUTO) 0.1 X10'3 (0-0.9); EOSINOPHILS % (AUTO) 0.5 % (0-6); HEMATOCRIT 39.8 % (42.0-52.0); HEMOGLOBIN 13.4 g/dl (14.0-17.9); LYMPHOCYTES # (AUTO) 1.5 X10'3 (1.1-4.8); LYMPHOCYTES % (AUTO) 11.5 % (21-51); MEAN CORPUSCULAR HEMOGLOBIN 31.2 PG (27.0-31.0); MEAN CORPUSCULAR HGB CONC 33.5 g/dL (33.0-36.5); MEAN CORPUSCULAR VOLUME 93.1 FL (78-98); MONOCYTES # (AUTO) 0.6 X10'3 (0-0.9); MONOCYTES % (AUTO) 4.5 % (2-12); NEUTROPHILS # (AUTO) 10.5 X10'3 (1.8-7.7); PLATELET COUNT 340 X10'3 (140-440); RED BLOOD COUNT 4.28 X10'6 (4.70-6.10); RED CELL DISTRIBUTION WIDTH 14.8 % (11.5-14.5); WHITE BLOOD COUNT 12.7 X10'3 (4.5-11.0)
--- NOTE | 2020-12-05 06:42 | NUR ---
Problems reprioritized. Patient report given, questions answered & plan of care reviewed with Traci MARIA.
[2020-12-05 06:59] LABS: ALANINE AMINOTRANSFERASE 65 U/L (12-78); ALBUMIN 3.2 G/DL (3.4-5.0); ALBUMIN/GLOBULIN RATIO 0.8 (1.1-1.5); ALKALINE PHOSPHATASE 87 IU/L (46-116); ANION GAP 9 (8-16); ASPARTATE AMINO TRANSFERASE 25 U/L (10-37); BILIRUBIN,TOTAL 0.3 MG/DL (0.1-1.0); BLOOD UREA NITROGEN 12 MG/DL (7-18); BUN/CREATININE RATIO 14.6 (5.4-32.0); CALCIUM 8.5 MG/DL (8.5-10.1); CHLORIDE 100 MMOL/L (99-107); CHOL/HDL RATIO 3.9 (0.00-4.99); CHOLESTEROL 156 MG/DL (0-200); CREATININE 0.82 MG/DL (0.60-1.10); GLUCOSE 197 MG/DL (70-104); HDL CHOLESTEROL 40 MG/DL (35-60); LDL CHOLESTEROL 93 MG/DL (50-100); POTASSIUM 4.3 MMOL/L (3.5-5.1); SODIUM 136 MMOL/L (135-145); TOTAL PROTEIN 7.4 G/DL (6.4-8.2); TRIGLYCERIDES 106 MG/DL (20-135); eGFR > 90 ML/MIN
[2020-12-05 07:00] VITALS: BP 121/63
[2020-12-05] MEDS: heparin, porcine 5000 units/ml vial SQ SCH (08:00)
[2020-12-05] MEDS: pantoprazole 40 MG vial IV SCH (08:47)
[2020-12-05] MEDS: lisinopril 20mg tablet PO SCH (08:48)
[2020-12-05] MEDS: lactobacillus rhamnosus 10,000 MMU CELLS/CAPSULE PO SCH (08:48)
[2020-12-05] MEDS: sertraline 50mg tablet PO SCH (08:48)
[2020-12-05] MEDS: insulin glargine (Lantus) pen - multi-dose SQ SCH (08:52)
[2020-12-05] MEDS: normal saline 1000ml 1,000 ML IV SCH (09:33)
--- NOTE | 2020-12-05 09:50 | NUR ---
Patient agreed to have Humalog per our hospital protocol at this time, There was no Humalog available this am so I ordered one from pharmacy.
[2020-12-05] MEDS: morphine 2 MG/ML inj. syringe IV PRN (10:45)
[2020-12-05 12:00] VITALS: BP 124/62
[2020-12-05] MEDS ORDERED: HYDR-3972 PO (12:39)
--- NOTE | 2020-12-05 13:23 | NUR ---
Discharge instructions given to patient, patient verbalized understanding of all instructions given. Peripheral IV catheter removed, tip intact. Original, written prescription for Marydel given to patient; extra 3 bandages given to patient. Instructed patient to ensure he has all his belongings with him before leaving the hospital.
== END 2020-12-05 13:45 | disposition home or self-care (01) | DRG 234 ==
LOC: ER 22:14 → ED HOLD 12-04 03:28 → SUR 3N 12-04 15:16
PROVIDERS: ADMIT Family Medicine; ATTEND Family Medicine
PROC: 8E0W4CZ Robotic Assisted Procedure of Trunk Region, Percutaneous Endoscopic Approach (ICD-10-PCS; 2020-12-04)
PROC: 0DTJ4ZZ Resection of Appendix, Percutaneous Endoscopic Approach (ICD-10-PCS; principal; 2020-12-04 12:17)
DX: K35.80 Unspecified acute appendicitis (principal); E11.65 Type 2 diabetes mellitus with hyperglycemia; E66.01 Morbid (severe) obesity due to excess calories; G47.33 Obstructive sleep apnea (adult) (pediatric); Z68.42 Body mass index [BMI] 45.0-49.9, adult; I10 Essential (primary) hypertension; Z88.0 Allergy status to penicillin; Z88.8 Allergy status to other drugs, medicaments and biological substances; G89.29 Other chronic pain; J40 Bronchitis, not specified as acute or chronic; K66.0 Peritoneal adhesions (postprocedural) (postinfection)
CPT/HCPCS: 36415; 74176; 80053; 80061; 81001; 82948; 83036; 83690; 83735; 85025; 87081; 96374; 96375; 99285; A4215; A4618; C9113; C9290; G0378; J0694; J1100; J1644; J1815; J1885; J1956; J2001; J2250; J2270; J2405; J2704; J3010; J3490; J7030; J7120

== ENCOUNTER 2021-02-26 16:02 | Emergency (ER) | payer MEDICAID ==
[~2021-02-26] VITALS: Ht 177.8 cm; Wt 144.5 kg
[~2021-02-26 16:02] MED LIST changes: -AZIT500T9 PO; -COLC1TAB2 PO; +DULA3PEN SQ; +ERTU5TAB PO; +HYDR-3972 PO; +INSU100I31 SQ; +LISI20TA28 PO; -METF-436 PO; +METF-900 PO; -SAXA5TAB PO; +SPIR100T5 PO
[2021-02-26 17:29] VITALS: BP 145/82
[2021-02-26] MEDS ORDERED: BETA15CR4 TOP (20:44)
[2021-02-26] MEDS ORDERED: HYDR-3686 PO (20:44)
[2021-02-26] MEDS ORDERED: PRED20TA PO (20:44)
[2021-02-26] MEDS ORDERED: CLIN-143 PO (20:47)
== END 2021-02-26 20:54 | disposition home or self-care (01) ==
LOC: ER 16:02
DX: R21 Rash and other nonspecific skin eruption (principal); L29.9 Pruritus, unspecified; E11.9 Type 2 diabetes mellitus without complications; I10 Essential (primary) hypertension; G89.29 Other chronic pain; G47.39 Other sleep apnea; Z56.0 Unemployment, unspecified; Z88.0 Allergy status to penicillin; Z88.8 Allergy status to other drugs, medicaments and biological substances; Z91.010 Allergy to peanuts; Z79.2 Long term (current) use of antibiotics; Z79.4 Long term (current) use of insulin; Z79.899 Other long term (current) drug therapy
CPT/HCPCS: 99283

== ENCOUNTER 2021-03-18 16:02 | Emergency (ER) | payer MEDICAID ==
[~2021-03-18] VITALS: Ht 175.3 cm; Wt 148.6 kg
[~2021-03-18 16:02] MED LIST changes: +BETA15CR4 TOP
[2021-03-18 18:33] LABS: BASOPHILS % (AUTO) 0.4 % (0-1); EOSINOPHILS # (AUTO) 0.1 X10'3 (0-0.9); EOSINOPHILS % (AUTO) 1.2 % (0-6); HEMATOCRIT 43.9 % (42.0-52.0); HEMOGLOBIN 14.6 g/dl (14.0-17.9); LYMPHOCYTES % (AUTO) 18.9 % (21-51); MEAN CORPUSCULAR HEMOGLOBIN 30.6 PG (27.0-31.0); MEAN CORPUSCULAR HGB CONC 33.2 g/dL (33.0-36.5); MEAN CORPUSCULAR VOLUME 92.3 FL (78-98); MEAN PLATELET VOLUME 6.9 FL (7.4-10.4); MONOCYTES # (AUTO) 0.6 X10'3 (0-0.9); MONOCYTES % (AUTO) 5.7 % (2-12); NEUTROPHILS # (AUTO) 7.6 X10'3 (1.8-7.7); NEUTROPHILS % (AUTO) 73.8 % (42-75); PLATELET COUNT 269 X10'3 (140-440); RED BLOOD COUNT 4.75 X10'6 (4.70-6.10); RED CELL DISTRIBUTION WIDTH 14.7 % (11.5-14.5); WHITE BLOOD COUNT 10.3 X10'3 (4.5-11.0)
[2021-03-18 18:44] LABS: D-DIMER 0.85 MG/L FEU (0-0.50)
[2021-03-18 18:55] LABS: ALANINE AMINOTRANSFERASE 54 U/L (12-78); ALBUMIN 3.6 G/DL (3.4-5.0); ALBUMIN/GLOBULIN RATIO 0.9 (1.1-1.5); ALKALINE PHOSPHATASE 77 IU/L (46-116); ANION GAP 10 (8-16); ASPARTATE AMINO TRANSFERASE 20 U/L (10-37); BILIRUBIN,TOTAL 0.3 MG/DL (0.1-1.0); BLOOD UREA NITROGEN 7 MG/DL (7-18); BUN/CREATININE RATIO 7.9 (5.4-32.0); C-REACTIVE PROTEIN 1.55 MG/DL (0.0-0.5); CALCIUM 7.8 MG/DL (8.5-10.1); CHLORIDE 104 MMOL/L (99-107); CREATININE 0.89 MG/DL (0.60-1.10); GLUCOSE 223 MG/DL (70-104); POTASSIUM 4.1 MMOL/L (3.5-5.1); SODIUM 137 MMOL/L (135-145); TOTAL CARBON DIOXIDE 23.1 MMOL/L (24-32); TOTAL PROTEIN 7.4 G/DL (6.4-8.2); eGFR > 90 ML/MIN
[2021-03-18] MEDS ORDERED: methylPREDNISolone sod succ 125mg/2ml vial IV ONE (19:10)
[2021-03-18 19:39] LABS: TROPONIN I < 0.04 NG/ML (0.0-0.05)
[2021-03-18] MEDS ORDERED: METH4TAB81 PO (19:46)
[2021-03-18 20:01] VITALS: BP 131/74
--- NOTE | 2021-03-18 20:03 | NUR ---
patient received dc instructions and rx and acknowledged understanding. patient dc home with . vitals wnl.
== END 2021-03-18 20:03 | disposition home or self-care (01) ==
LOC: ER 16:02
DX: J45.909 Unspecified asthma, uncomplicated (principal); Z20.822 Contact with and (suspected) exposure to COVID-19; R06.02 Shortness of breath; R05 Cough; I10 Essential (primary) hypertension; E11.9 Type 2 diabetes mellitus without complications; G89.29 Other chronic pain; Z98.890 Other specified postprocedural states; Z56.0 Unemployment, unspecified; Z88.0 Allergy status to penicillin; Z88.5 Allergy status to narcotic agent; Z79.4 Long term (current) use of insulin; Z79.899 Other long term (current) drug therapy
CPT/HCPCS: 36415; 71045; 80053; 83605; 84145; 84484; 85025; 85379; 86140; 87040; 87635; 93005; 96374; 99285; C9803; J2930

== ENCOUNTER 2021-03-26 10:31 | Emergency (ER) | payer MEDICAID ==
[~2021-03-26] VITALS: Ht 175.3 cm; Wt 175.0 kg
[~2021-03-26 10:31] MED LIST changes: +METH4TAB81 PO
[2021-03-26 10:39] VITALS: BP 139/86
== END 2021-03-26 12:03 | disposition home or self-care (01) ==
LOC: ER 10:34
DX: U07.1 COVID-19 (principal); R42 Dizziness and giddiness; I10 Essential (primary) hypertension; J45.909 Unspecified asthma, uncomplicated; G47.39 Other sleep apnea; E11.9 Type 2 diabetes mellitus without complications; G89.29 Other chronic pain; Z56.0 Unemployment, unspecified; Z88.0 Allergy status to penicillin; Z88.8 Allergy status to other drugs, medicaments and biological substances; Z79.4 Long term (current) use of insulin; Z79.899 Other long term (current) drug therapy
CPT/HCPCS: 87635; 99283; C9803

== ENCOUNTER 2021-06-12 05:32 | Inpatient (IN) | payer MEDICAID ==
[~2021-06-12] VITALS: Ht 175.3 cm; Wt 149.8 kg
[2021-06-12] MEDS ORDERED: dextrose 50%-water 50ml dispensing syringe IV ONE ×3 (05:43→05:50)
[2021-06-12] MEDS ORDERED: Dextrose 10%-water IV solution 1,000 ML IV ONE (05:50)
[2021-06-12 06:16] LABS: BASOPHILS % (AUTO) 0.2 % (0-1); EOSINOPHILS # (AUTO) 0.1 X10'3 (0-0.9); EOSINOPHILS % (AUTO) 0.3 % (0-6); HEMATOCRIT 42.9 % (42.0-52.0); HEMOGLOBIN 14.4 g/dl (14.0-17.9); LYMPHOCYTES # (AUTO) 1.1 X10'3 (1.1-4.8); LYMPHOCYTES % (AUTO) 6.6 % (21-51); MEAN CORPUSCULAR HEMOGLOBIN 30.4 PG (27.0-31.0); MEAN CORPUSCULAR HGB CONC 33.5 g/dL (33.0-36.5); MEAN CORPUSCULAR VOLUME 90.6 FL (78-98); MONOCYTES # (AUTO) 0.8 X10'3 (0-0.9); MONOCYTES % (AUTO) 5.2 % (2-12); NEUTROPHILS # (AUTO) 14.3 X10'3 (1.8-7.7); NEUTROPHILS % (AUTO) 87.7 % (42-75); PLATELET COUNT 327 X10'3 (140-440); RED BLOOD COUNT 4.74 X10'6 (4.70-6.10); RED CELL DISTRIBUTION WIDTH 15.2 % (11.5-14.5); WHITE BLOOD COUNT 16.2 X10'3 (4.5-11.0)
[2021-06-12 06:18] LABS: ALANINE AMINOTRANSFERASE 26 U/L (12-78); ALBUMIN 3.2 G/DL (3.4-5.0); ALBUMIN/GLOBULIN RATIO 0.8 (1.1-1.5); ALKALINE PHOSPHATASE 71 IU/L (46-116); ANION GAP 11 (8-16); ASPARTATE AMINO TRANSFERASE 13 U/L (10-37); BILIRUBIN,TOTAL 0.1 MG/DL (0.1-1.0); BLOOD UREA NITROGEN 10 MG/DL (7-18); BUN/CREATININE RATIO 10.8 (5.4-32.0); CALCIUM 8.2 MG/DL (8.5-10.1); CHLORIDE 103 MMOL/L (99-107); CREATININE 0.93 MG/DL (0.60-1.10); GLUCOSE 74 MG/DL (70-104); SODIUM 139 MMOL/L (135-145); TOTAL CARBON DIOXIDE 25.5 MMOL/L (24-32); TOTAL PROTEIN 7.1 G/DL (6.4-8.2); eGFR 87 ML/MIN
[2021-06-12 06:31] LABS: ETHANOL < 0.010 GM/DL (0.0-0.010)
[2021-06-12] MEDS ORDERED: magnesium oxide 400mg tablet PO ONE (06:35)
[2021-06-12] MEDS ORDERED: potassium Cl 20 mEq SR tablet PO STA (06:35)
--- NOTE | 2021-06-12 07:09 | NUR ---
PT AND DAUGHTER CAME TO VISIT. PER PT REQUEST, PT DOES NOT WANT TO COME BACK "FOR NOW, MAYBE ILL CHANGE MY MIND LATER. SHES THE CAUSE OF ALL OF THIS." DAUGHTER CAME BACK WITHOUT
--- NOTE | 2021-06-12 07:12 | NUR ---
RECEIVED VERBAL ORDER FROM THERAPEUTIC SPECIALIST TO INCREASE RATE OF D10 TO 200ML/HOUR. RATE INCREASED ORDERED
[2021-06-12] MEDS ORDERED: acetaminophen 325mg tablet PO PRN (07:20)
[2021-06-12] MEDS ORDERED: ondansetron/PF 4mg/2ml inj IV PRN (07:20)
[2021-06-12] MEDS ORDERED: potassium Cl 20 mEq SR tablet PO PRN ×2 (07:20)
[2021-06-12] MEDS ORDERED: DEXTROSE 10 % AND 0.45 % NACL 1,000 ML IV SCH (07:20)
[2021-06-12] MEDS ORDERED: glucagon, human recombinant 1mg kit SUBCUT ONE (07:20)
[2021-06-12] MEDS ORDERED: magnesium hydroxide 30ml (MOM) UD suspension PO PRN (07:20)
[2021-06-12 07:41] LABS: CLARITY,URINE CLEAR (Clear); COLOR,URINE YELLOW (Yellow); GLUCOSE, URINE >=1000 mg/dl (Neg); KETONES,URINE NEGATIVE (Neg); LEUKOCYTE ESTERASE ,URINE NEGATIVE (Neg); NITRITES, URINE NEGATIVE (Neg); OCCULT BLOOD,URINE NEGATIVE (Neg); PROTEIN,URINE NEGATIVE (Neg); UROBILINOGEN,URINE 0.2 E.U/dL (0.2-1.0)
[2021-06-12 07:46] LABS: UA COLLECTION TYPE URINAL
[2021-06-12 07:49] LABS: BACTERIA,URINE FEW /HPF (Neg); MUCUS STRANDS FEW /LPF (Neg); RBC,URINE 0-2 /HPF (0-2); SQUAMOUS EPITHELIAL CELL,UR MODERATE /LPF (FEW); WBC,URINE 0-4 /HPF (0-4); YEAST FEW /HPF (NEGATIVE)
[2021-06-12] MEDS: DEXTROSE 10 % AND 0.45 % NACL 1,000 ML IV SCH ×4 (07:58→22:35)
[2021-06-12] MEDS: K and/or MAG REPLACEMENT MC SCH (08:00)
[2021-06-12] MEDS: heparin, porcine 5000 units/ml vial SQ SCH ×2 (08:21→17:04)
--- NOTE | 2021-06-12 08:25 | NUR ---
FAXED MED REC TO PHARMACY
--- NOTE | 2021-06-12 08:40 | NUR ---
PERIANESTHESIA NURSE ENEDINA AT [facility]
[2021-06-12 08:46] LABS: URINE AMPHETAMINE SCREEN NEGATIVE (Neg); URINE BARBITUATE SCREEN NEGATIVE (Neg); URINE BENZODIAZEPINES SCREEN NEGATIVE (Neg); URINE CANNABINOID SCREEN NEGATIVE (Neg); URINE COCAINE SCREEN NEGATIVE (Neg); URINE METHADONE SCREEN NEGATIVE (Neg); URINE OPIATE SCREEN NEGATIVE (Neg); URINE PHENCYCLIDINE SCREEN NEGATIVE (Neg)
[2021-06-12] MEDS ORDERED: nicotine 14mg patch - 24hr TD SCH (10:25)
--- NOTE | 2021-06-12 10:41 | NUR ---
SNACKS/FOOD PROVIDED BLOOD SUGAR DROPPED 50POINTS IN LAST HOUR
[2021-06-12] MEDS ORDERED: INSU100I31 SQ (11:30)
[2021-06-12] MEDS ORDERED: METF-900 PO (11:30)
[2021-06-12] MEDS ORDERED: ALBU8.5H17 IH (11:30)
[2021-06-12] MEDS ORDERED: SPIR100T5 PO (11:30)
[2021-06-12] MEDS ORDERED: BETA15CR4 TOP (11:30)
[2021-06-12] MEDS ORDERED: ERTU15TA PO (11:30)
[2021-06-12] MEDS ORDERED: INSU100C10 SQ (11:30)
[2021-06-12] MEDS ORDERED: ATOR20TA66 PO (11:30)
[2021-06-12] MEDS ORDERED: SERT100T PO (11:30)
[2021-06-12] MEDS ORDERED: DEP5I IM (11:30)
--- NOTE | 2021-06-12 18:48 | NUR ---
PT EATING MEAL TRAY
[2021-06-12] MEDS: acetaminophen 325mg tablet PO PRN (20:46)
[2021-06-12] MEDS ORDERED: ketorolac trometh. 30mg/ml inj. IV ONE (21:45)
[2021-06-13] MEDS: heparin, porcine 5000 units/ml vial SQ SCH ×3 (01:43→16:28)
[2021-06-13] MEDS: DEXTROSE 10 % AND 0.45 % NACL 1,000 ML IV SCH ×5 (03:43→23:39)
[2021-06-13] MEDS: acetaminophen 325mg tablet PO PRN ×2 (03:43→09:47)
--- NOTE | 2021-06-13 03:44 | NUR ---
called brilliandeer lopper to ask for additional pain medicine per pt request. message left
--- NOTE | 2021-06-13 06:54 | NUR ---
pt up to use restroom at this time,refuded the bedsidecommode.
[2021-06-13] MEDS: nicotine 14mg patch - 24hr TD SCH (07:16)
--- NOTE | 2021-06-13 07:27 | NUR ---
PAGED HOSPITALIST PER NURSE @[phone]
--- NOTE | 2021-06-13 07:30 | NUR ---
notified charge nurse lidia that pt is not under hospitalist list and pt is still under trust vault custodian as per lidia contact the hospitalist and inform that pt is downgraded to pcu ,spoke to dr pinedo regarding the situation as per dr pinedo contact the icu
--- NOTE | 2021-06-13 07:36 | NUR ---
spoke to dr clayton regarding pt b.s 43 and situation not under hospitalist as per md give 50% dextrose amp and feed him breakfast ,informed that there was no prn order but dextrose d50% was active on omnicell radha i have given dose of d50 amp for low b.s as per md its okay .
[2021-06-13] MEDS ORDERED: dextrose 50%-water 50ml dispensing syringe IV ONE ×2 (07:45→12:05)
[2021-06-13] MEDS: K and/or MAG REPLACEMENT MC SCH (08:00)
[2021-06-13 08:07] LABS: MAGNESIUM 1.7 MG/DL (1.5-2.4); POTASSIUM 4.2 MMOL/L (3.5-5.1)
--- NOTE | 2021-06-13 10:00 | NUR ---
ANGEL CHARGE NURSE AWARE THAT PT NEED A SITTER , PER ANGEL WE DON'T HAVE STAFF.
--- NOTE | 2021-06-13 10:19 | NUR ---
ISADORA NOEL AT BEDSIDE .
--- NOTE | 2021-06-13 12:04 | NUR ---
called dr pat regarding patient low b.s 58 ,informed that pt has not got lunch and pt is been eating since last night and now he is radha full ,tele order for dextrose 50 %. i amp onces.will follow the orders,as per md he will call refuse collector supervisor to volodymyriy why pt is not on hospitalist service.
--- NOTE | 2021-06-13 13:10 | NUR ---
given food tray to patient ,saved 2 more food tray as patient were d/c ,pt aox 4 eating his food.
--- NOTE | 2021-06-13 13:26 | NUR ---
HEART HEALTHY/CC MEAL TRAY GIVEN TO PATIENT AFTER CHECKING SUGAR
--- NOTE | 2021-06-13 14:51 | NUR ---
PAGED HOSPITALIST PER NURSE@[phone]
--- NOTE | 2021-06-13 15:16 | NUR ---
SPOKE TO DR BRNACH AND INFORMED THAT I CALLED HOSPITALIST TO ASK WHO IS GOING TO TAKE THIS PATIENT , PER DR CLANCY THE BEST WORKER NEVER CALLED THE HOSPITALIST TO SIGNOUT HIS PATIENT TO HOSPITALIST CARE.I NFORME DTAHT PER NIGHT NURSE AND CHARGE THE PT IS DOWNGRADED TO PCU AND IT WAS DONE LAST NIGHT . PER DR BRANCH THE HOSPITALIST HAS NOTHING TO DO WITH THE PT HE IS STILL UNDER HIS SERVICE AND HE HAS NOT SPOKEN TO ANY HOSPITALIST TO TRANSFER THE PT FROM ICU TO PTHER UNIT, PER HE WILL MAKE THAT DECISION TONIGHT . NOTIFIED THE CHARGE NURSE.
[2021-06-13] MEDS ORDERED: DULA3PEN SQ (19:37)
[2021-06-13] MEDS ORDERED: SILD100T PO (19:37)
[2021-06-13] MEDS ORDERED: ALBU2.5V13 NEB (19:37)
[2021-06-13] MEDS ORDERED: EPIN0.3P3 IM (19:37)
[2021-06-13] MEDS ORDERED: LISI20TA28 PO (19:37)
--- NOTE | 2021-06-13 23:00 | NUR ---
dr. Salas the hospitalist is at the bedside talking with pt. waiting for new orders
[2021-06-14] MEDS ORDERED: insulin Lispro (HumaLOG) vial - multi-dose SQ SCH (00:40)
[2021-06-14] MEDS ORDERED: glucagon, human recombinant 1mg kit SUBCUT PRN (00:40)
[2021-06-14] MEDS ORDERED: dextrose 50%-water 50ml dispensing syringe IV PRN ×2 (00:40)
[2021-06-14] MEDS ORDERED: MESSAGE TO PHARMACY PO ONE (00:40)
[2021-06-14] MEDS ORDERED: dextrose ORAL solution 15 GM/59 ML bottle PO PRN (00:40)
[2021-06-14] MEDS ORDERED: ondansetron/PF 4mg/2ml inj IV PRN (00:45)
[2021-06-14] MEDS ORDERED: mag hydrox/Alum hydrox/simeth 30ml oral suspension PO PRN (00:45)
[2021-06-14] MEDS ORDERED: magnesium hydroxide 30ml (MOM) UD suspension PO PRN (00:45)
[2021-06-14] MEDS ORDERED: bisacodyl 10mg suppository rectal RC PRN (00:45)
[2021-06-14] MEDS ORDERED: acetaminophen 325mg tablet PO PRN ×2 (00:45)
[2021-06-14] MEDS ORDERED: acetaminophen 650mg rectal suppository RC PRN (00:45)
[2021-06-14] MEDS ORDERED: diphenhydrAMINE 50 mg/ml inj IV PRN (00:45)
[2021-06-14] MEDS ORDERED: diphenhydrAMINE 25mg capsule PO PRN (00:45)
[2021-06-14] MEDS ORDERED: morphine 2 MG/ML inj. syringe IV PRN (00:45)
[2021-06-14] MEDS ORDERED: HYDROcodone/acetaminophen 5mg/325mg tablet PO PRN (00:45)
[2021-06-14] MEDS ORDERED: albuterol 2.5 MG/3 ML nebule NEB PRN (00:50)
[2021-06-14] MEDS: heparin, porcine 5000 units/ml vial SQ SCH ×6 (01:16→23:46)
[2021-06-14 02:00] VITALS: BP 150/100
[2021-06-14] MEDS: DEXTROSE 10 % AND 0.45 % NACL 1,000 ML IV SCH ×2 (02:14→09:35)
[2021-06-14 06:00] VITALS: BP 156/87
[2021-06-14 06:10] LABS: MAGNESIUM 1.9 MG/DL (1.5-2.4); PHOSPHORUS 3.9 MG/DL (2.3-4.5)
[2021-06-14 06:13] LABS: POTASSIUM 4.2 MMOL/L (3.5-5.1)
[2021-06-14 06:14] LABS: HEMOGLOBIN A1C 7.6 % (4.5-6.2)
[2021-06-14] MEDS: spironolactone 25 MG tablet PO SCH (09:02)
[2021-06-14] MEDS: atorvastatin 20mg tablet PO SCH (09:03)
[2021-06-14] MEDS: sertraline 50mg tablet PO SCH (09:03)
[2021-06-14] MEDS: pantoprazole 40mg Tablet.DR PO SCH (09:03)
[2021-06-14] MEDS: lisinopril 10 MG tablet PO SCH (09:04)
[2021-06-14] MEDS: docusate sod 100mg capsule PO SCH ×3 (09:04→21:47)
[2021-06-14] MEDS: nicotine 14mg patch - 24hr TD SCH (09:14)
[2021-06-14] MEDS: K and/or MAG REPLACEMENT MC SCH (09:15)
[2021-06-14 11:00] VITALS: BP 145/83
--- NOTE | 2021-06-14 12:13 | NUR ---
DM consult: Pt with T2DM, current A1c 7.6% down from 10.5% in November of this year per EMR. Noted pt admit for suicide attempt by overdosing on long and short acting insulin per MD notes. DM education not appropriate at this time. Pt with a sitter at bedside and SW has already been consulted. Noted pt on a regular diet which is appropriate at this time given frequent episodes of hypoglycemia. Will continue to follow. Addendum: 06/14/21 at [address] Amended: Links added.
[2021-06-14 15:00] VITALS: BP 143/96
[2021-06-14 18:00] VITALS: BP 131/88
--- NOTE | 2021-06-14 18:50 | NUR ---
Patient in room PCU 3028. I have received report from Jeison MARIA and had the opportunity to ask questions and assume patient care.
--- NOTE | 2021-06-14 19:13 | NUR ---
Problems reprioritized. Patient report given, questions answered & plan of care reviewed with
[2021-06-14] MEDS ORDERED: temazepam 15mg capsule PO PRN (21:00)
[2021-06-14 22:00] VITALS: BP 120/65
[2021-06-15 02:00] VITALS: BP 132/69
[2021-06-15] MEDS: dextrose ORAL solution 15 GM/59 ML bottle PO PRN ×2 (05:14→05:37)
[2021-06-15 06:00] VITALS: BP 111/74
[2021-06-15 06:01] LABS: BASOPHILS # (AUTO) 0.1 X10'3 (0-0.2); BASOPHILS % (AUTO) 0.5 % (0-1); EOSINOPHILS # (AUTO) 0.4 X10'3 (0-0.9); EOSINOPHILS % (AUTO) 3.5 % (0-6); HEMATOCRIT 40.1 % (42.0-52.0); HEMOGLOBIN 13.8 g/dl (14.0-17.9); LYMPHOCYTES # (AUTO) 2.7 X10'3 (1.1-4.8); LYMPHOCYTES % (AUTO) 25.3 % (21-51); MEAN CORPUSCULAR HGB CONC 34.5 g/dL (33.0-36.5); MEAN CORPUSCULAR VOLUME 89.9 FL (78-98); MEAN PLATELET VOLUME 7.4 FL (7.4-10.4); MONOCYTES # (AUTO) 0.6 X10'3 (0-0.9); MONOCYTES % (AUTO) 5.8 % (2-12); NEUTROPHILS # (AUTO) 6.9 X10'3 (1.8-7.7); NEUTROPHILS % (AUTO) 64.9 % (42-75); PLATELET COUNT 265 X10'3 (140-440); RED BLOOD COUNT 4.46 X10'6 (4.70-6.10); RED CELL DISTRIBUTION WIDTH 14.8 % (11.5-14.5); WHITE BLOOD COUNT 10.7 X10'3 (4.5-11.0)
[2021-06-15 06:17] LABS: ALANINE AMINOTRANSFERASE 28 U/L (12-78); ALBUMIN 2.9 G/DL (3.4-5.0); ALBUMIN/GLOBULIN RATIO 0.8 (1.1-1.5); ALKALINE PHOSPHATASE 63 IU/L (46-116); ANION GAP 7 (8-16); ASPARTATE AMINO TRANSFERASE 16 U/L (10-37); BILIRUBIN,TOTAL 0.2 MG/DL (0.1-1.0); BLOOD UREA NITROGEN 9 MG/DL (7-18); BUN/CREATININE RATIO 11.5 (5.4-32.0); CALCIUM 8.6 MG/DL (8.5-10.1); CHLORIDE 103 MMOL/L (99-107); CREATININE 0.78 MG/DL (0.60-1.10); GLUCOSE 56 MG/DL (70-104); SODIUM 138 MMOL/L (135-145); TOTAL CARBON DIOXIDE 28.2 MMOL/L (24-32); TOTAL PROTEIN 6.7 G/DL (6.4-8.2); eGFR > 90 ML/MIN
--- NOTE | 2021-06-15 06:24 | NUR ---
Problems reprioritized. Patient report given, questions answered & plan of care reviewed with Jeison MARIA.
[2021-06-15] MEDS: spironolactone 25 MG tablet PO SCH (08:02)
[2021-06-15] MEDS: lisinopril 10 MG tablet PO SCH (08:03)
[2021-06-15] MEDS: atorvastatin 20mg tablet PO SCH (08:03)
[2021-06-15] MEDS: sertraline 50mg tablet PO SCH (08:03)
[2021-06-15] MEDS: nicotine 14mg patch - 24hr TD SCH ×2 (08:04→21:44)
[2021-06-15] MEDS: docusate sod 100mg capsule PO SCH ×2 (08:04→20:00)
[2021-06-15] MEDS: pantoprazole 40mg Tablet.DR PO SCH (08:04)
[2021-06-15] MEDS: heparin, porcine 5000 units/ml vial SQ SCH ×2 (08:05→16:21)
--- NOTE | 2021-06-15 09:23 | NUR ---
Orders for accuchecks to be q2h put in per Dr. Santiago.
[2021-06-15 11:00] VITALS: BP 121/78
[2021-06-15 15:00] VITALS: BP 127/76
[2021-06-15 18:00] VITALS: BP 113/47
--- NOTE | 2021-06-15 19:08 | NUR ---
Problems reprioritized. Patient report given, questions answered & plan of care reviewed with Pedro MARIA.
--- NOTE | 2021-06-15 21:38 | NUR ---
Pt reported his nicotine patch fell on the floor requested new patch; Dr. Salas notified and OK to place new patch on pt.
[2021-06-15 22:00] VITALS: BP 114/67
[2021-06-16 02:00] VITALS: BP 109/55
[2021-06-16] MEDS: heparin, porcine 5000 units/ml vial SQ SCH ×3 (02:06→16:00)
--- NOTE | 2021-06-16 05:45 | NUR ---
Pt is finally resting , CPAP on. No signs of any discomfort noted. Sitter at bedside. Blood sugar monitoring in progress. Level remains stable.
[2021-06-16 06:00] VITALS: BP 148/84
[2021-06-16 06:05] LABS: BASOPHILS % (AUTO) 0.4 % (0-1); EOSINOPHILS # (AUTO) 0.4 X10'3 (0-0.9); EOSINOPHILS % (AUTO) 3.9 % (0-6); HEMATOCRIT 38.7 % (42.0-52.0); HEMOGLOBIN 13.1 g/dl (14.0-17.9); LYMPHOCYTES # (AUTO) 2.3 X10'3 (1.1-4.8); LYMPHOCYTES % (AUTO) 22.7 % (21-51); MEAN CORPUSCULAR HEMOGLOBIN 30.7 PG (27.0-31.0); MEAN CORPUSCULAR HGB CONC 33.7 g/dL (33.0-36.5); MONOCYTES # (AUTO) 0.7 X10'3 (0-0.9); MONOCYTES % (AUTO) 7.4 % (2-12); NEUTROPHILS # (AUTO) 6.6 X10'3 (1.8-7.7); NEUTROPHILS % (AUTO) 65.6 % (42-75); PLATELET COUNT 286 X10'3 (140-440); RED BLOOD COUNT 4.26 X10'6 (4.70-6.10); RED CELL DISTRIBUTION WIDTH 14.7 % (11.5-14.5); WHITE BLOOD COUNT 10.1 X10'3 (4.5-11.0)
[2021-06-16 06:18] LABS: ALANINE AMINOTRANSFERASE 30 U/L (12-78); ALBUMIN/GLOBULIN RATIO 0.8 (1.1-1.5); ALKALINE PHOSPHATASE 71 IU/L (46-116); ANION GAP 8 (8-16); ASPARTATE AMINO TRANSFERASE 16 U/L (10-37); BILIRUBIN,TOTAL 0.4 MG/DL (0.1-1.0); BLOOD UREA NITROGEN 12 MG/DL (7-18); BUN/CREATININE RATIO 13.3 (5.4-32.0); CALCIUM 8.4 MG/DL (8.5-10.1); CHLORIDE 100 MMOL/L (99-107); GLUCOSE 154 MG/DL (70-104); POTASSIUM 4.4 MMOL/L (3.5-5.1); SODIUM 134 MMOL/L (135-145); TOTAL CARBON DIOXIDE 25.7 MMOL/L (24-32); TOTAL PROTEIN 6.9 G/DL (6.4-8.2); eGFR 90 ML/MIN
--- NOTE | 2021-06-16 06:40 | NUR ---
Patient in room PCU 3026. I have received report from Glo MARIA and had the opportunity to ask questions and assume patient care.
[2021-06-16] MEDS: pantoprazole 40mg Tablet.DR PO SCH (07:51)
[2021-06-16] MEDS: lisinopril 10 MG tablet PO SCH (07:51)
[2021-06-16] MEDS: atorvastatin 20mg tablet PO SCH (07:52)
[2021-06-16] MEDS: sertraline 50mg tablet PO SCH (07:52)
[2021-06-16] MEDS: spironolactone 25 MG tablet PO SCH (07:53)
[2021-06-16] MEDS: docusate sod 100mg capsule PO SCH (07:57)
--- NOTE | 2021-06-16 09:29 | NUR ---
Initial: Pt admit for intentional overdose with long-acting and short-acting insulin. Pt previously on dextrose drip for hypoglycemia, now on glycemic protocol with BG range 103-169 mg/dL over the last 24 hours. Pt on a regular diet and eating fairly well with mostly 75% PO intake. LBM 06/14, with routine bowel care available however pt refuses at times per EMR. No nutrition intervention implemented at this time. Will continue to follow and make recommendations as appropriate. Recommendations: 1) Continue regular diet given frequent episodes of hypoglycemia; CHO controlled diet if BG consistently elevated 2) Routine bowel care 3) Weekly scaled weights Addendum: 06/16/21 at [address] Amended: Links added.
--- NOTE | 2021-06-16 10:21 | NUR ---
06/15/21 0914 nicotine patch reassessment not done
[2021-06-16 11:00] VITALS: BP 142/87
[2021-06-16 15:00] VITALS: BP 154/89
--- NOTE | 2021-06-16 16:47 | NUR ---
Pt discharged with daughter to home. Iv removed, tip intact, no complications. belongings sent with pt. Educated on discharge follow up. Patient discharged in stable condition
== END 2021-06-16 16:53 | disposition home or self-care (01) | DRG 817 ==
LOC: ER 05:32 → ED HOLD 07:28 → EDBEDREQ 22:01 → PCU 3S 06-14 00:46
PROVIDERS: ADMIT Family Medicine; ATTEND Internal Medicine
DX: T38.3X2A Poisoning by insulin and oral hypoglycemic [antidiabetic] drugs, intentional self-harm, initial encounter (principal); E11.649 Type 2 diabetes mellitus with hypoglycemia without coma; R56.9 Unspecified convulsions; E87.6 Hypokalemia; G47.33 Obstructive sleep apnea (adult) (pediatric); E78.5 Hyperlipidemia, unspecified; J45.909 Unspecified asthma, uncomplicated; K57.90 Diverticulosis of intestine, part unspecified, without perforation or abscess without bleeding; I10 Essential (primary) hypertension; F32.A Depression, unspecified; E66.01 Morbid (severe) obesity due to excess calories; Z68.42 Body mass index [BMI] 45.0-49.9, adult; Z91.51 Personal history of suicidal behavior; Z79.899 Other long term (current) drug therapy; Z72.0 Tobacco use; Z88.0 Allergy status to penicillin; Z88.5 Allergy status to narcotic agent; Z91.018 Allergy to other foods; Y92.89 Other specified places as the place of occurrence of the external cause
CPT/HCPCS: 36415; 80053; 80305; 80320; 81001; 82948; 83036; 83605; 83735; 84100; 84132; 84443; 85025; 85610; 87040; 87081; 93005; 96365; 96375; 97161; 97530; 99291; G0378; J1610; J1644; J1815; J1885; J3490

== ENCOUNTER 2022-01-09 09:12 | Day surgery (SDC) | payer MEDICAID ==
[~2022-01-09] VITALS: Ht 175.3 cm; Wt 143.2 kg
[~2022-01-09 09:12] MED LIST changes: +ALBU2.5V13 NEB; +ALBU8.5H17 IH; +ATOR20TA66 PO; -BETA15CR4 TOP; +DEP5I IM; -DULA3PEN SQ; +EPIN0.3P3 IM; -ERTU5TAB PO; -HYDR-3972 PO; -INSU100I31 SQ; -INSU100I7 SQ; -METF-900 PO; -METH4TAB81 PO; +SERT100T PO; -SERT25TA PO; +SILD100T PO
[2022-01-09 09:25] VITALS: BP 151/90
[2022-01-09] MEDS ORDERED: MIDAZolam 1 MG/ML 5ML VIAL ONE (09:29)
[2022-01-09] MEDS ORDERED: fentaNYL/PF 50MCG/1 ML 2ML syringe ONE (09:29)
[2022-01-09] MEDS ORDERED: DULA3PEN (09:42)
[2022-01-09] MEDS ORDERED: ERTU15TA PO (09:42)
[2022-01-09] MEDS ORDERED: HYDR-3686 PO (09:42)
[2022-01-09] MEDS ORDERED: FLUO40CA PO (09:42)
[2022-01-09] MEDS ORDERED: CELE100C98 PO (09:42)
[2022-01-09] MEDS ORDERED: CLIN60SO2 TOP (09:42)
[2022-01-09] MEDS ORDERED: GABA-530 PO (09:42)
[2022-01-09 10:33] VITALS: BP 124/59
[2022-01-09 10:43] VITALS: BP 122/69
[2022-01-09 10:53] VITALS: BP 119/75
== END 2022-01-09 11:21 | disposition home or self-care (01) ==
LOC: GI LAB 09:12
PROVIDERS: ATTEND Internal Medicine Gastroenterology
DX: Z12.11 Encounter for screening for malignant neoplasm of colon (principal); K63.5 Polyp of colon; K57.30 Diverticulosis of large intestine without perforation or abscess without bleeding; K64.8 Other hemorrhoids; J45.909 Unspecified asthma, uncomplicated; I10 Essential (primary) hypertension; E11.9 Type 2 diabetes mellitus without complications; E66.9 Obesity, unspecified; Z68.42 Body mass index [BMI] 45.0-49.9, adult; Z87.891 Personal history of nicotine dependence; Z86.19 Personal history of other infectious and parasitic diseases; Z88.5 Allergy status to narcotic agent; Z88.0 Allergy status to penicillin; Z91.018 Allergy to other foods; Z86.010 Personal history of colon polyps; Z98.890 Other specified postprocedural states
CPT/HCPCS: 45380; 45385; 99152; 99153; C1773; J2250; J3010; J7030; Z7512; A4620

== ENCOUNTER 2022-03-05 14:49 | Emergency (ER) | payer MEDICAID ==
[~2022-03-05] VITALS: Ht 175.3 cm; Wt 145.4 kg
[~2022-03-05 14:49] MED LIST changes: +CELE100C98 PO; +CLIN60SO2 TOP; +DULA3PEN; +ERTU15TA PO; +FLUO40CA PO; +GABA-530 PO; +HYDR-3686 PO
[2022-03-05 14:52] VITALS: BP 141/73
== END 2022-03-05 18:30 | disposition home or self-care (01) ==
LOC: ER 14:50
DX: M72.2 Plantar fascial fibromatosis (principal); I10 Essential (primary) hypertension; J45.909 Unspecified asthma, uncomplicated; E11.9 Type 2 diabetes mellitus without complications; G89.29 Other chronic pain; Z56.0 Unemployment, unspecified; Z88.0 Allergy status to penicillin; Z88.5 Allergy status to narcotic agent; Z79.899 Other long term (current) drug therapy; Z79.2 Long term (current) use of antibiotics; Z79.1 Long term (current) use of non-steroidal anti-inflammatories (NSAID)
CPT/HCPCS: 73630; 99283

== ENCOUNTER 2024-07-30 22:05 | Emergency (ER) | payer MEDICAID ==
[~2024-07-30] VITALS: Ht 175.3 cm; Wt 152.8 kg
[~2024-07-30 22:05] MED LIST changes: +CELE-148 PO; -CELE100C98 PO
[2024-07-30 22:23] VITALS: BP 162/94; PULSE 93; RESP 16; TEMP 99.3; O2SAT 97
[2024-07-30] MEDS: LIDOcaine 1% W/epiNEPHrine 1:100,000 20ml vial IJ ONE (23:35)
[2024-07-30] MEDS: ibuprofen 200mg tablet PO ONE (23:40)
[2024-07-30] MEDS: acetaminophen 325mg tablet PO ONE (23:41)
[2024-07-31] MEDS ORDERED: CLIN-118 PO (00:27)
== END 2024-07-31 00:41 | disposition home or self-care (01) ==
LOC: ER 22:06
DX: L02.01 Cutaneous abscess of face (principal); E11.9 Type 2 diabetes mellitus without complications; G47.30 Sleep apnea, unspecified; J45.909 Unspecified asthma, uncomplicated; I10 Essential (primary) hypertension; Z88.0 Allergy status to penicillin; Z88.5 Allergy status to narcotic agent; Z98.890 Other specified postprocedural states
CPT/HCPCS: 10060; 99284; A6258; A6449

== ENCOUNTER 2024-09-26 22:30 | Emergency (ER) | payer MEDICAID ==
[~2024-09-26] VITALS: Ht 175.3 cm; Wt 165.6 kg
[~2024-09-26 22:30] MED LIST changes: -ALBU2.5V13 NEB; +CHLO118L TOP; -CLIN60SO2 TOP; -DULA3PEN; +INSU100I61 SQ; +INSU500I SQ; +LACT1CAP26 PO; +MUPI15CR12 TOP; +PANT-47 PO; +SEMA1PEN3 SQ; +TIZA2CAP7
[2024-09-26 22:37] VITALS: BP 166/85; PULSE 89; RESP 17; O2SAT 96
[2024-09-26 23:51] LABS: BASOPHILS # (AUTO) 0.1 X10'3 (0-0.2); EOSINOPHILS % (AUTO) 11.7 % (0-6); HEMOGLOBIN 12.4 g/dl (14.0-17.9); LYMPHOCYTES # (AUTO) 2.2 X10'3 (1.1-4.8); LYMPHOCYTES % (AUTO) 25.3 % (21-51); MEAN CORPUSCULAR HGB CONC 33.5 g/dL (33.0-36.5); MEAN CORPUSCULAR VOLUME 92.5 FL (78-98); MONOCYTES # (AUTO) 0.5 X10'3 (0-0.9); MONOCYTES % (AUTO) 5.3 % (2-12); NEUTROPHILS # (AUTO) 4.9 X10'3 (1.8-7.7); NEUTROPHILS % (AUTO) 56.7 % (42-75); PLATELET COUNT 243 X10'3 (140-440); RED CELL DISTRIBUTION WIDTH 14.7 % (11.5-14.5); WHITE BLOOD COUNT 8.6 X10'3 (4.5-11.0)
[2024-09-27] LABS: ALBUMIN 3.1 G/DL (3.4-5.0); ANION GAP 5 (8-16); BLOOD UREA NITROGEN 6 MG/DL (7-18); BUN/CREATININE RATIO 7.6 (10.0-20.0); CALCIUM 8.3 MG/DL (8.5-10.1); CHLORIDE 104 MMOL/L (99-107); CREATININE 0.79 MG/DL (0.60-1.10); GLUCOSE 295 MG/DL (70-104); POTASSIUM 4.4 MMOL/L (3.5-5.1); SODIUM 138 MMOL/L (135-145); TOTAL CARBON DIOXIDE 28.6 MMOL/L (24-32); eCRCL 111 ML/MIN; eGFR > 90 ML/MIN
[2024-09-27 00:18] VITALS: TEMP 96.6
== END 2024-09-27 00:28 | disposition home or self-care (01) ==
LOC: ER 22:31
DX: K42.9 Umbilical hernia without obstruction or gangrene (principal); R19.7 Diarrhea, unspecified; J45.909 Unspecified asthma, uncomplicated; I10 Essential (primary) hypertension; E11.9 Type 2 diabetes mellitus without complications; G47.30 Sleep apnea, unspecified; G89.29 Other chronic pain; Z88.0 Allergy status to penicillin; Z88.8 Allergy status to other drugs, medicaments and biological substances; Z88.1 Allergy status to other antibiotic agents; Z88.5 Allergy status to narcotic agent; Z98.890 Other specified postprocedural states; Z79.899 Other long term (current) drug therapy; Z56.0 Unemployment, unspecified
CPT/HCPCS: 36415; 74176; 80048; 85025; 99284

== ENCOUNTER 2024-12-05 18:18 | Emergency (ER) | payer MEDICAID ==
[~2024-12-05] VITALS: Ht 177.8 cm; Wt 154.0 kg
[2024-12-05 18:20] VITALS: TEMP 98.2
--- NOTE | 2024-12-05 20:51 | Physician Documentation ---
History of Present Illness ~ Chief Complaint: See Chief Complaint Stated Complaint: "FEELS OUT OF IT" Time Seen by MD: 20:14 OK to notify your PCP?: Yes Primary Medical Doctor: [facility] HPI 54-year-old male, history of diabetes, who presents with feeling generally unwell. He tells me that for the past 3 days, he has been feeling out of it. He states that his head feels fuzzy and he feels generally weak. He did have some dry mouth intermittently. The symptoms fluctuate, seem better when he wakes up in the morning but worsened throughout the day. He denies any fevers, chills, headache, syncope, shortness of breath, productive cough, nausea, vomiting, diarrhea, dysuria. He has been checking his blood sugar, states he has been intermittently running low, as low as 47. Currently he is around 130. He states it is normal around 200. He did recently start a new medication to try to produce , has recently started on metoclopramide and benztropine. No other recent medication changes Medication Reconciliation Allergies: Coded Allergies: Penicillins (Unverified Allergy, Severe, PT REPORTS DEADLY REACTION, 09/26/24) TOLERATED CEFEPIME 08/2024 Last reaction >5 years, angioedema, required treatment metformin (Verified Allergy, Severe, hives, 09/26/24) vancomycin (Verified Allergy, Severe, anaphylaxis, 09/26/24) eyes burning and swelling as well as chest tightness codeine (Verified Adverse Reaction, Unknown, VOMITING, 09/26/24) Uncoded Allergies: cooked peas (Allergy, Intermediate, 12/28/09) pt with extreme emesis for >1 week Scheduled Atorvastatin Calcium (Atorvastatin Calcium), 1 TAB PO DAILY, (Reported) Celecoxib (Celecoxib), 1 CAP PO DAILY, (Reported) Chlorhexidine Gluconate (Hibiclens), 1 APPLIC TOP DAILY Epinephrine (Epipen 2-Kiko), 1 SYR IM ONCE, (Reported) Ertugliflozin Pidolate (Steglatro), 1 TAB PO QAM, (Reported) Estradiol Cypionate (Depo-Estradiol), 0.3 ML IM Q7D, (Reported) Fluoxetine Hcl (Fluoxetine Hcl), 1 CAP PO QAM, (Reported) Gabapentin (Gabapentin), 1 CAP PO TID, (Reported) Lactobacillus Rhamnosus (Culturelle), 1 CAP PO DAILY Lisinopril (Lisinopril), 1 TAB PO DAILY Mupirocin Calcium (Mupirocin), 1 APPLIC TOP Q8H Pantoprazole Sodium (PROTONIX tablet), 40 MG PO DAILY Semaglutide (Ozempic), 1 ML SQ Q7D, (Reported) Sertraline Hcl (Zoloft), 1 TAB PO DAILY, (Reported) Sildenafil Citrate* (Viagra*), 1 TAB PO QDAY PRN, (Reported) Spironolactone (Spironolactone), 1 TAB PO DAILY, (Reported) Scheduled PRN Albuterol Sulfate (Proair Hfa), 2 PUFFS IH Q4H PRN for SOB or wheezing, (Reported) Hydroxyzine Hcl* (Atarax*), 1 TAB PO Q4H PRN for itching, (Reported) Miscellaneous Medications Insulin Lispro (Insulin Lispro Kwikpen U-100), SQ, (Reported) Insulin Regular, Human (Humulin R U-500 Kwikpen), SQ, (Reported) Tizanidine Hcl (Tizanidine Hcl), 1, (Reported) Past Medical History Past Medical History: Hypertension, Asthma, Bronchitis, Sleep Apnea, Hernia, Diabetes, Chronic Pain Past Surgical History: abdominal surgery, other Other Past Surgical History: hernia repair, interssuception, C. diff colitis Alcohol Use: None Drug Use: none Lives with: Family Lives In: Home Occupation: unemployed Review of Systems Constitutional: Denies: fever Eyes: Reports: blurred vision Gastrointestinal: Denies: abdominal pain, nausea, vomiting Neurological: Denies: headache, fainting Physical Exam Vital Signs: Temperature: 98.2, Heart Rate: 91, Respiratory Rate: 16, BP: 128/74, Pulse Oximetry: 96, Weight: 154.000 Oxygen Flow Rate: 0 Physical Exam General: This is a tired appearing middle-aged man, lying in bed, partner at bedside HEENT: Atraumatic, oropharynx appears dry. Conjunctiva is normal, pupils are equal. Heart: Mild tachycardic, appears regular Lungs: Diminished breath sounds bilateral, normal work of breathing, normal oxygen saturation on room air Abdomen: Soft, nondistended, nontender all quadrants Extremities: Warm and well-perfused Neuro: Alert and oriented, speech is clear, no facial droop, normal motor function in all 4 extremities, no focal deficits Psychiatric: Flattened affect and appears tired, but is cooperative Progress Results/Orders Results/Orders Completed Orders - [place] ALFREDO MD Cbc/Diff (12/05/24 20:32) CMP (12/05/24 20:32) TSH (12/05/24 20:32) Troponin (Single) (12/05/24 20:33) Normal Saline 1000ml (Sodium Chloride 10 (12/05/24 20:35) Ua W/Microscopic, Cult If Ind (12/05/24 21:38) Vital Signs 12/05/24 12/05/24 18:20 23:21 Temp 98.2 Pulse 91 92 Resp 16 16 B/P (MAP) 128/74 128/72 Pulse Ox 96 97 O2 Flow Rate 0 Laboratory Tests Test 12/05/24 18:28 12/05/24 20:55 12/05/24 21:38 Glucometer 152 H White Blood Count 11.4 H Red Blood Count 4.53 L Hemoglobin 13.9 L Hematocrit 40.9 L Mean Corpuscular Volume 90.3 Mean Corpuscular Hemoglobin 30.6 Mean Corpuscular Hemoglobin Concent 33.8 Red Cell Distribution Width 14.5 Platelet Count 298 Mean Platelet Volume 6.7 L Neutrophils (%) (Auto) 74.4 Lymphocytes (%) (Auto) 18.5 L Monocytes (%) (Auto) 5.2 Eosinophils (%) (Auto) 1.2 Basophils (%) (Auto) 0.7 Neutrophils # (Auto) 8.5 H Lymphocytes # (Auto) 2.1 Monocytes # (Auto) 0.6 Eosinophils # (Auto) 0.1 Basophils # (Auto) 0.1 CBC Comment Sodium Level 139 Potassium Level 3.7 Chloride Level 105 Carbon Dioxide Level 24.5 Anion Gap 10 Blood Urea Nitrogen 11 Creatinine 0.96 Estimated GFR/1.73 m2 82 BUN/Creatinine Ratio 11.5 Glucose Level 113 H Calcium Level 8.5 Total Bilirubin 0.4 Aspartate Amino Transf (AST/SGOT) 13 Alanine Aminotransferase (ALT/SGPT) 31 Alkaline Phosphatase 72 Troponin I High Sensitivity 4 Total Protein 7.7 Albumin 3.6 Globulin 4.1 Albumin/Globulin Ratio 0.9 L Thyroid Stimulating Hormone (TSH) 3.94 Chemistry Comments Urine Specimen Description Cln catch midstream Urine Color Yellow Urine Clarity Clear Urine pH 6.0 Urine Specific Roxton 1.015 Urine Protein Negative Urine Glucose (UA) >=1000 H Urine Ketones 15 H Urine Occult Blood Negative Urine Nitrite Negative Urine Bilirubin Negative Urine Urobilinogen 0.2 Urine Leukocyte Esterase Negative Urine RBC None seen Urine WBC None seen Urine Squamous Epithelial Cells Few Urine Bacteria None seen Urine Mucus Few Urine Culture Indicated Not ind Volume Urine Centrifuged 10 ml Urine Comment Medical Decision Making Differential Dx:Considerations: Include: anemia, CVA, dehydration, electrolyte imbalance, hypoglycemia, hypovolemia, myocardial infarction, renal failure Additional Information Differential includes medication reaction, UTI Assessment 54-year-old male, history of diabetes, who presents with 3 days of general malaise and nonspecific symptoms. Per his history and exam, he has no infectious type symptoms, and a benign abdominal exam. Per his history, the only recent change would be his medications including metoclopramide and benztropine. His laboratory testing is unremarkable except for findings consistent with diabetes. No significant dehydration or electrolyte derangement. No anemia. Urinalysis without infection. No dangerous laboratory abnormality. Overall, I suspect that his symptoms are all related to the new medications, specifically the benztropine. His constellation of symptoms including blurry vision, dry mouth, trouble concentrating, etc. all are included in the side effects of benztropine. He has no dangerous findings to warrant further workup or admission for observation. He was instructed to stop these medications and monitor his symptoms. He will contact his prescribing doctor on Sunday to arrange follow-up. Departure Time of Disposition: 22:26 Disposition: HOME / SELF CARE / HOMELESS Impression: Primary Impression: Medication adverse effect Condition: Stable Referrals: NO PRIMARY CARE PROVIDER (PCP) Education Educated: Patient, Family Educated regarding: diagnosis, need for follow up Signature Scribe Signature: na Attestation: [place] Neil MD December 05, 2024 20:51
[2024-12-05] MEDS: normal saline 1000ml 1,000 ML IV ONE (21:05)
[2024-12-05 21:16] LABS: BASOPHILS # (AUTO) 0.1 X10'3 (0-0.2); BASOPHILS % (AUTO) 0.7 % (0-1); EOSINOPHILS # (AUTO) 0.1 X10'3 (0-0.9); EOSINOPHILS % (AUTO) 1.2 % (0-6); HEMATOCRIT 40.9 % (42.0-52.0); HEMOGLOBIN 13.9 g/dl (14.0-17.9); LYMPHOCYTES # (AUTO) 2.1 X10'3 (1.1-4.8); LYMPHOCYTES % (AUTO) 18.5 % (21-51); MEAN CORPUSCULAR HEMOGLOBIN 30.6 PG (27.0-31.0); MEAN CORPUSCULAR HGB CONC 33.8 g/dL (33.0-36.5); MEAN CORPUSCULAR VOLUME 90.3 FL (78-98); MEAN PLATELET VOLUME 6.7 FL (7.4-10.4); MONOCYTES # (AUTO) 0.6 X10'3 (0-0.9); MONOCYTES % (AUTO) 5.2 % (2-12); NEUTROPHILS # (AUTO) 8.5 X10'3 (1.8-7.7); NEUTROPHILS % (AUTO) 74.4 % (42-75); PLATELET COUNT 298 X10'3 (140-440); RED BLOOD COUNT 4.53 X10'6 (4.70-6.10); RED CELL DISTRIBUTION WIDTH 14.5 % (11.5-14.5); WHITE BLOOD COUNT 11.4 X10'3 (4.5-11.0)
[2024-12-05 21:38] LABS: ANION GAP 10 (8-16); BLOOD UREA NITROGEN 11 MG/DL (7-18); BUN/CREATININE RATIO 11.5 (10.0-20.0); CHLORIDE 105 MMOL/L (99-107); CREATININE 0.96 MG/DL (0.60-1.10); GLUCOSE 113 MG/DL (70-104); POTASSIUM 3.7 MMOL/L (3.5-5.1); SODIUM 139 MMOL/L (135-145); TOTAL CARBON DIOXIDE 24.5 MMOL/L (24-32)
[2024-12-05 21:39] LABS: ALANINE AMINOTRANSFERASE 31 U/L (12-78); ALBUMIN 3.6 G/DL (3.4-5.0); ALBUMIN/GLOBULIN RATIO 0.9 (1.1-1.5); ALKALINE PHOSPHATASE 72 IU/L (46-116); ASPARTATE AMINO TRANSFERASE 13 U/L (10-37); BILIRUBIN,TOTAL 0.4 MG/DL (0.1-1.0); CALCIUM 8.5 MG/DL (8.5-10.1); THYROID STIMULATING HORMONE 3.94 ulU/ml (0.34-4.50); TOTAL PROTEIN 7.7 G/DL (6.4-8.2); eCRCL 93 ML/MIN; eGFR 82 ML/MIN
[2024-12-05 21:51] LABS: BILIRUBIN,URINE NEGATIVE (Neg); CLARITY,URINE CLEAR (Clear); COLOR,URINE YELLOW (Yellow); GLUCOSE, URINE >=1000 mg/dl (Neg); KETONES,URINE 15 mg/dl (Neg); LEUKOCYTE ESTERASE ,URINE NEGATIVE (Neg); NITRITES, URINE NEGATIVE (Neg); OCCULT BLOOD,URINE NEGATIVE (Neg); PROTEIN,URINE NEGATIVE (Neg); UROBILINOGEN,URINE 0.2 E.U/dL (0.2-1.0)
[2024-12-05 21:53] LABS: UA COLLECTION TYPE CLN CATCH MIDSTREAM
[2024-12-05 21:59] LABS: BACTERIA,URINE NONE SEEN /HPF (Neg); MUCUS STRANDS FEW /LPF (Neg); RBC,URINE NONE SEEN /HPF (0-2); SQUAMOUS EPITHELIAL CELL,UR FEW /LPF (FEW); WBC,URINE NONE SEEN /HPF (0-4)
[2024-12-05 23:21] VITALS: BP 128/72; PULSE 92; RESP 16; O2SAT 97
== END 2024-12-05 23:23 | disposition home or self-care (01) ==
LOC: ER 18:19
DX: R53.1 Weakness (principal); T44.3X5A Adverse effect of other parasympatholytics [anticholinergics and antimuscarinics] and spasmolytics, initial encounter; E11.9 Type 2 diabetes mellitus without complications; I10 Essential (primary) hypertension; J45.909 Unspecified asthma, uncomplicated; G47.30 Sleep apnea, unspecified; Z88.0 Allergy status to penicillin; Z88.1 Allergy status to other antibiotic agents; Z88.8 Allergy status to other drugs, medicaments and biological substances; Z98.890 Other specified postprocedural states; Z88.5 Allergy status to narcotic agent; Z79.899 Other long term (current) drug therapy; Z56.0 Unemployment, unspecified; Y92.89 Other specified places as the place of occurrence of the external cause
CPT/HCPCS: 36415; 80053; 81001; 82948; 84443; 84484; 85025; 96360; 99283; J7030

== ENCOUNTER 2024-12-08 12:14 | Inpatient (IN) | payer MEDICAID ==
[~2024-12-08] VITALS: Ht 177.8 cm; Wt 154.0 kg
--- NOTE | 2024-12-08 12:41 | ELECTROCARDIOGRAPH REPORT ---
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
[2024-12-08 13:09] LABS: BASOPHILS % (AUTO) 0.4 % (0-1); EOSINOPHILS # (AUTO) 0.1 X10'3 (0-0.9); EOSINOPHILS % (AUTO) 0.9 % (0-6); HEMATOCRIT 41.1 % (42.0-52.0); LYMPHOCYTES # (AUTO) 1.3 X10'3 (1.1-4.8); LYMPHOCYTES % (AUTO) 11.4 % (21-51); MEAN CORPUSCULAR HEMOGLOBIN 30.7 PG (27.0-31.0); MEAN CORPUSCULAR VOLUME 90.4 FL (78-98); MEAN PLATELET VOLUME 6.9 FL (7.4-10.4); MONOCYTES # (AUTO) 0.5 X10'3 (0-0.9); MONOCYTES % (AUTO) 4.2 % (2-12); NEUTROPHILS # (AUTO) 9.3 X10'3 (1.8-7.7); NEUTROPHILS % (AUTO) 83.1 % (42-75); PLATELET COUNT 289 X10'3 (140-440); RED BLOOD COUNT 4.55 X10'6 (4.70-6.10); RED CELL DISTRIBUTION WIDTH 14.5 % (11.5-14.5); WHITE BLOOD COUNT 11.2 X10'3 (4.5-11.0)
[2024-12-08 13:21] LABS: ALANINE AMINOTRANSFERASE 25 U/L (12-78); ALBUMIN 3.7 G/DL (3.4-5.0); ALBUMIN/GLOBULIN RATIO 0.9 (1.1-1.5); ALKALINE PHOSPHATASE 77 IU/L (46-116); ANION GAP 11 (8-16); ASPARTATE AMINO TRANSFERASE 7 U/L (10-37); BILIRUBIN,TOTAL 0.5 MG/DL (0.1-1.0); BLOOD UREA NITROGEN 10 MG/DL (7-18); BUN/CREATININE RATIO 13.3 (10.0-20.0); CALCIUM 8.6 MG/DL (8.5-10.1); CHLORIDE 103 MMOL/L (99-107); CREATININE 0.75 MG/DL (0.60-1.10); GLUCOSE 136 MG/DL (70-104); POTASSIUM 4.1 MMOL/L (3.5-5.1); SODIUM 135 MMOL/L (135-145); TOTAL CARBON DIOXIDE 20.7 MMOL/L (24-32); TOTAL PROTEIN 7.7 G/DL (6.4-8.2); eCRCL 119 ML/MIN; eGFR > 90 ML/MIN
--- NOTE | 2024-12-08 13:22 | RADIOLOGY REPORT ---
EXAM: CT CT HEAD INDICATION: BRAIN FOGGINESS ,DIZZINESS TECHNIQUE: CT of the head without intravenous contrast. Radiation Dose : 1. Head: CT Dose: CTDI volume is 16 mGy. Dose-length product is 1276 mGy*cm The dose indicators for CT are the volume Computed Tomography (CT) Dose Index (CTDIvol) and the Dose Length Product (DLP), and are measured in units of mGy and mGy-cm, respectively. These indicators are not patient dose, but values generated from the CT scanner acquisition factors. The report includes radiation exposure data for exposures received during this examination. COMPARISON: None FINDINGS: There is no evidence of acute intracranial hemorrhage, extra-axial collection, mass effect, midline s hift, herniation or hydrocephalus. The ventricles, sulci and cisterns are age appropriate. The mehta-white differentiation is intact. Patchy periventricular and subcortical white matter hypoattenuation is nonspecific but may be related to small vessel ischemic disease. The visualized paranasal sinuses and mastoid air cells are clear. The surrounding soft tissues and osseous structures are unremarkable. IMPRESSION: 1. No acute intracranial abnormality. Radiation optimization: All CT scans at this facility use at least one of these dose optimization sandra hniques: automated exposure control mA and/or kV adjustment per patient size (includes targeted exam s where dose is matched to clinical indication) or iterative reconstruction.
--- NOTE | 2024-12-08 13:42 | Physician Documentation ---
History of Present Illness ~ Chief Complaint: See Chief Complaint Stated Complaint: MULTIPLE MED COMPLAINTS Time Seen by MD: 13:22 OK to notify your PCP?: Yes Primary Medical Doctor: [facility] Mode of Arrival: Ambulatory HPI 54-year-old male who is transitioning to female presenting with two weeks of generalized weakness. Patient reports that he has gradually gotten worse. His head feels very foggy any can not think clearly. He also states that he feels a lot of pressure in his chest and feels like his heart is going to jump out of his chest. He reports that these symptoms will come and go but they have been gradually worsening over the past two weeks. He states that he gets very short of breath and fatigue with any type of activity. He is currently taking estrogen supplements weekly. Additionally he was recently started on some usha tropine and metoclopramide which were stopped five days ago due to some side effects. He denies any fever, chills any nausea, vomiting or any other associated symptoms. Medication Reconciliation Allergies: Coded Allergies: Penicillins (Unverified Allergy, Severe, PT REPORTS DEADLY REACTION, 09/26/24) TOLERATED CEFEPIME 08/2024 Last reaction >5 years, angioedema, required treatment metformin (Verified Allergy, Severe, hives, 09/26/24) vancomycin (Verified Allergy, Severe, anaphylaxis, 09/26/24) eyes burning and swelling as well as chest tightness codeine (Verified Adverse Reaction, Unknown, VOMITING, 09/26/24) Uncoded Allergies: cooked peas (Allergy, Intermediate, 12/28/09) pt with extreme emesis for >1 week Scheduled Atorvastatin Calcium (Atorvastatin Calcium), 1 TAB PO DAILY, (Reported) Celecoxib (Celecoxib), 1 CAP PO DAILY, (Reported) Ertugliflozin Pidolate (Steglatro), 1 TAB PO QAM, (Reported) Fluoxetine Hcl (Fluoxetine Hcl), 1 CAP PO QAM, (Reported) Gabapentin (Gabapentin), 1 CAP PO QID, (Reported) Insulin Degludec (Tresiba Flextouch U-100), 80 UNITS SQ DAILY, (Reported) Insulin Regular, Human (Humulin R U-500 Kwikpen), 80 UNIT SQ BKF, (Reported) Insulin Regular, Human (Humulin R U-500 Kwikpen), 50 SQ WL, (Reported) Insulin Regular, Human (Humulin R U-500 Kwikpen), 30 SQ WS, (Reported) Lisinopril (Lisinopril), 1 TAB PO DAILY, (Reported) Loratadine (Loratadine), 10 MG PO DAILY, (Reported) Montelukast Sodium (Montelukast Sodium), 1 TAB PO DAILY, (Reported) Pioglitazone Hcl* (Actos*), 1 TAB PO DAILY, (Reported) Scheduled PRN Hydroxyzine Hcl* (Atarax*), 1 TAB PO Q4H PRN for itching, (Reported) Miscellaneous Medications Tizanidine Hcl (Tizanidine Hcl), 1, (Reported) Discontinued Medications Albuterol Sulfate (Proair Hfa), 2 PUFFS IH Q4H PRN for SOB or wheezing, (Reported) Discontinued Reason: completed med therapy Chlorhexidine Gluconate (Hibiclens), 1 APPLIC TOP DAILY Discontinued Reason: completed med therapy Epinephrine (Epipen 2-Kiko), 1 SYR IM ONCE, (Reported) Discontinued Reason: completed med therapy Estradiol Cypionate (Depo-Estradiol), 0.3 ML IM Q7D, (Reported) Discontinued Reason: completed med therapy Gabapentin (Gabapentin), 1 CAP PO TID, (Reported) Discontinued Reason: Other Insulin Lispro (Insulin Lispro Kwikpen U-100), SQ, (Reported) Discontinued Reason: completed med therapy Lactobacillus Rhamnosus (Culturelle), 1 CAP PO DAILY Discontinued Reason: completed med therapy Lisinopril (Lisinopril), 1 TAB PO DAILY Discontinued Reason: completed med therapy Mupirocin Calcium (Mupirocin), 1 APPLIC TOP Q8H Discontinued Reason: completed med therapy Pantoprazole Sodium (PROTONIX tablet), 40 MG PO DAILY Discontinued Reason: completed med therapy Semaglutide (Ozempic), 1 ML SQ Q7D, (Reported) Discontinued Reason: completed med therapy Sertraline Hcl (Zoloft), 1 TAB PO DAILY, (Reported) Discontinued Reason: completed med therapy Sildenafil Citrate* (Viagra*), 1 TAB PO QDAY PRN, (Reported) Discontinued Reason: completed med therapy Spironolactone (Spironolactone), 1 TAB PO DAILY, (Reported) Discontinued Reason: Out of medication Past Medical History Past Medical History: Hypertension, Asthma, Bronchitis, Sleep Apnea, Hernia, Diabetes, Chronic Pain Past Surgical History: abdominal surgery, other Other Past Surgical History: hernia repair, interssuception, C. diff colitis Alcohol Use: None Drug Use: none Lives with: Family Lives In: Home Occupation: unemployed Review of Systems All Other Systems at this time: Reviewed and Negative Physical Exam Vital Signs: Temperature: 97.8, Heart Rate: 80, Respiratory Rate: 19, BP: 130/67, Pulse Oximetry: 97, Weight: 154.000 Oxygen Flow Rate: 0 Physical Exam I have reviewed the triage vitals. CONST: Well developed and well nourished. In no acute distress. Obese. Looks fatigued. HENT: Head Atraumatic EYES: Pupils are equal, round and reactive to light. Normal conjunctiva NECK: Normal range of motion. Supple. CARDIO: Normal rate and regular rhythm. No murmurs, rubs, or gallops. S1, S2. PULM/CHEST: No respiratory distress. Lungs clear to auscultation. No wheeze ABD: Soft and nontender. Nondistended. Bowel sounds normal. No guarding. : Exam deferred MSK: No edema. No deformity. NEURO: Alert and oriented to person, place and time. Moving all extremities SKIN: Warm and dry. PSYCH: Normal mood and affect. Good eye contact. Progress Results/Orders Results/Orders Orders - GALINA CAMPUZANO MD Culture Blood (12/08/24 13:34) Chest,Single View (12/08/24 13:34) Ct Abdomen Pelvis (12/08/24 14:00) Page Hospitalist (12/08/24 17:00) Fill Out Med Reconciliation (12/08/24 17:00) Completed Orders - GALINA CAMPUZANO MD Ammonia (12/08/24 13:34) Hs Troponin I W Calculations (12/08/24 13:34) Pt Inr (12/08/24 13:34) PTT (12/08/24 13:34) Chest,Single View (12/08/24 13:34) Ct Abdomen Pelvis (12/08/24 14:00) Normal Saline 1000ml (Sodium Chloride 10 (12/08/24 13:35) Procalcitonin (12/08/24 13:38) LA (12/08/24 12:55) Ceftriaxone/X7v-Fcdspacx 1gm (Rocephin 1 (12/08/24 17:00) Furosemide 20mg Inj (Lasix Inj) (12/08/24 17:00) Regular Diet (12/08/24 Dinner) Ua With Microscopic (12/08/24 17:16) Vital Signs 12/08/24 12/08/24 12/08/24 12:22 13:10 16:04 Temp 97.8 Pulse 89 80 80 Resp 18 19 18 B/P (MAP) 154/94 130/67 (88) 137/83 (101) Pulse Ox 97 97 100 O2 Flow Rate 0 0 Laboratory Tests Test 12/08/24 12:55 12/08/24 14:12 12/08/24 17:16 White Blood Count 11.2 H Red Blood Count 4.55 L Hemoglobin 14.0 Hematocrit 41.1 L Mean Corpuscular Volume 90.4 Mean Corpuscular Hemoglobin 30.7 Mean Corpuscular Hemoglobin Concent 34.0 Red Cell Distribution Width 14.5 Platelet Count 289 Mean Platelet Volume 6.9 L Neutrophils (%) (Auto) 83.1 H Lymphocytes (%) (Auto) 11.4 L Monocytes (%) (Auto) 4.2 Eosinophils (%) (Auto) 0.9 Basophils (%) (Auto) 0.4 Neutrophils # (Auto) 9.3 H Lymphocytes # (Auto) 1.3 Monocytes # (Auto) 0.5 Eosinophils # (Auto) 0.1 Basophils # (Auto) 0.0 CBC Comment Prothrombin Time 11.1 INR International Normalized Ratio 1.1 Activated Partial Thromboplast Time 29 Coagulation Comments Sodium Level 135 Potassium Level 4.1 Chloride Level 103 Carbon Dioxide Level 20.7 L Anion Gap 11 Blood Urea Nitrogen 10 Creatinine 0.75 Estimated GFR/1.73 m2 > 90 BUN/Creatinine Ratio 13.3 Glucose Level 136 H Hemoglobin A1c 7.6 H Lactic Acid Level 0.9 Calcium Level 8.6 Total Bilirubin 0.5 Aspartate Amino Transf (AST/SGOT) 7 L Alanine Aminotransferase (ALT/SGPT) 25 Alkaline Phosphatase 77 Troponin I High Sensitivity < 4 L Troponin I High Sens Percent Delta Troponin I Hi Sens Absolute Change Pro-B-Type Natriuretic Peptide 131 H Total Protein 7.7 Albumin 3.7 Globulin 4.0 Albumin/Globulin Ratio 0.9 L Procalcitonin < 0.05 Chemistry Comments Ammonia < 10 L Urine Specimen Description Cln catch midstream Urine Color Yellow Urine Clarity Clear Urine pH 6.0 Urine Specific Preston 1.010 Urine Protein Negative Urine Glucose (UA) >=1000 H Urine Ketones 15 H Urine Occult Blood Negative Urine Nitrite Negative Urine Bilirubin Negative Urine Urobilinogen 0.2 Urine Leukocyte Esterase Negative Urine RBC 0-2 Urine WBC None seen Urine Squamous Epithelial Cells None seen Urine Bacteria None seen Urine Mucus None seen Volume Urine Centrifuged 10 ml Urine Comment Microbiology Date/Time Source Procedure Growth Status 12/08/24 15:04 Blood Arm Left Blood Culture - Preliminary NEGATIVE (LESS THAN 24 HOURS) Resulted EKG/XRAY/CT/US/VASC/MRI EKG : Additional Comment EKG as interpreted by ED MD shows normal sinus rhythm at a rate of 79 beats per minute, normal axis, no ischemia Chest X-Ray : Additional Comments DI CHEST,SINGLE VIEW, HISTORY: weakness COMPARISON: CHEST,SINGLE VIEW on DOS: 03/18/21 CHEST,SINGLE VIEW on DOS: 03/18/21 TECHNICAL DATA: 1 view of the chest was obtained. FINDINGS: Lines and tubes: None Cardiomediastinal silhouette: normal Pulmonary vasculature: normal Lung expansion: normal Lung airspace: normal Lung interstitium: normal Pleura: normal Pneumothorax: no Bones: Unremarkable Other: no IMPRESSION: No acute intrathoracic abnormality. : Impression Exam: CT CT ABDOMEN PELVIS History: abdominal swelling Comparison Study: CT CT ABDOMEN PELVIS on DOS: 09/26/24, CT ABDOMEN PELVIS on DOS: 12/04/20 Technique: Multidetector spiral CT of the abdomen was performed from lung bases to pubic symphysis. Imaging was performed without IV contrast. Axial, coronal and sagittal multiplanar reformats were obtained from the axial data set by the technologist. Radiation Dose : 1. Abdomen/Pelvis: CTDIvol 37 mGy, DLP 1975 mGy*cm. Findings: Evaluation of solid organs is limited due to lack of intravenous contrast use. Lung Bases: No acute or significant lung base finding. Normal heart size. No pleural or pericardial effusion. Liver: The liver is normal in size. No focal lesions. Gallbladder and Biliary Tree: Unremarkable Spleen: Unremarkable Pancreas: The pancreas is grossly normal in appearance. Adrenal Glands: Unremarkable Kidneys: Kidneys are grossly normal without calculi or hydronephrosis. Bladder: Grossly unremarkable for degree of distention. Bowel: The stomach is grossly normal in appearance. Small bowel and colon are normal in caliber and distribution. The appendix is not visualized; however, no secondary findings of acute appendicitis identified. Ascites: Absent Lymphadenopathy: No mesenteric, retroperitoneal or periportal lymphadenopathy. Abdominal Wall and Mesentery: Small fat containing umbilical hernia. Vasculature: The visualized abdominal aorta is normal in size and caliber. Evaluation of abdominal and pelvic vessels is limited due to lack of intravenous contrast. Pelvic Organs: Unremarkable Musculoskeletal: No aggressive focal bony lesions, acute fractures or dislocation. IMPRESSION: 1. No acute abdominal or pelvic findings. 2. Small fat containing umbilical hernia Radiation optimization: All CT scans at this facility use at least one of these dose optimization techniques: automated exposure control mA and/or kV adj ustment per patient size (includes targeted exams where dose is matched to clinical indication) or iterative reconstruction. : CT CT HEAD INDICATION: BRAIN FOGGINESS ,DIZZINESS TECHNIQUE: CT of the head without intravenous contrast. Radiation Dose : 1. Head: CT Dose: CTDI volume is 16 mGy. Dose-length product is 1276 mGy*cm The dose indicators for CT are the volume Computed Tomography (CT) Dose Index (CTDIvol) and the Dose Length Product (DLP), and are measured in units of mGy and mGy-cm, respectively. These indicators are not patient dose, but values generated from the CT scanner acquisition factors. The report includes radiation exposure data for exposures received during this examination. COMPARISON: None FINDINGS: There is no evidence of acute intracranial hemorrhage, extra-axial collection, mass effect, midline shift, herniation or hydrocephalus. The ventricles, sulci and cisterns are age appropriate. The mehta-white differentiation is intact. Patchy periventricular and subcortical white matter hypoattenuation is nonspecific but may be related to small vessel ischemic disease. The visualized paranasal sinuses and mastoid air cells are clear. The surrounding soft tissues and osseous structures are unremarkable. IMPRESSION: 1. No acute intracranial abnormality. Radiation optimization: All CT scans at this facility use at least one of these dose optimization techniques: automated exposure control mA and/or kV adjustment per patient size (includes targeted exams where dose is matched to clinical indication) or iterative reconstruction. Medical Decision Making Additional Information 54-year-old male presenting with generalized weakness, shortness of breath and fatigue. His lab workup indicates a slightly elevated BNP. On chest x-ray he has massive cardiomegaly but does not have a history or diagnosis of CHF. Patient does have chronic obstructive sleep apnea and does use a CPAP. His lab workup also indicates a slightly elevated did WBC count. Remainder of the lab work is grossly unremarkable. Differential is broad including possible new onset CHF versus dehydration versus thyroid disorder versus underlying infectious process versus other etiology. We did give the patient a L of IV normal saline as well as a g of IV ceftriaxone. Given the potential for CHF he was also given 20 mg of IV Lasix. Given his clinical status of extreme fatigue and the vague findings I believe he is high risk and should not be discharged home. Patient needs to be admitted for further evaluation including full cardiac workup with echocardiogram. Report called to admitting hospitalist who accepted the patient. Departure Disposition: 09 ADMITTED INPATIENT Admitted to Inpatient Unit: to hospitalist Admission Level of Care: Med/Surg with Tele Impression: Primary Impression: Cardiomegaly Additional Impressions: Generalized weakness Fatigue Condition: Guarded Referrals: NO PRIMARY CARE PROVIDER (PCP) Signature Scribe Signature: 1 Attestation: 1 GALINA CAMPUZANO MD December 08, 2024 13:42
--- NOTE | 2024-12-08 14:05 | RADIOLOGY REPORT ---
DI CHEST,SINGLE VIEW, HISTORY: weakness COMPARISON: CHEST,SINGLE VIEW on DOS: 03/18/21 CHEST,SINGLE VIEW on DOS: 03/18/21 TECHNICAL DATA: 1 view of the chest was obtained. FINDINGS: Lines and tubes: None Cardiomediastinal silhouette: normal Pulmonary vasculature: normal Lung expansion: normal Lung airspace: normal Lung interstitium: normal Pleura: normal Pneumothorax: no Bones: Unremarkable Other: no IMPRESSION: No acute intrathoracic abnormality.
[2024-12-08 14:11] LABS: APTT 29 SECONDS (22-32); INR 1.1 INR; PROTHROMBIN TIME 11.1 SECONDS (9.0-12.0)
[2024-12-08 14:26] LABS: PRO BRAIN NATRIURETIC PEPTIDE 131 PG/ML (0-125)
[2024-12-08] MEDS: normal saline 1000ml 1,000 ML IV ONE (14:27)
--- NOTE | 2024-12-08 14:45 | RADIOLOGY REPORT ---
Exam: CT CT ABDOMEN PELVIS History: abdominal swelling Comparison Study: CT CT ABDOMEN PELVIS on DOS: 09/26/24, CT ABDOMEN PELVIS on DOS: 12/04/20 Technique: Multidetector spiral CT of the abdomen was performed from lung bases to pubic symphysis. Imaging was performed without IV contrast. Axial, coronal and sagittal multiplanar reformats were ob tained from the axial data set by the technologist. Radiation Dose : 1. Abdomen/Pelvis: CTDIvol 37 mGy, DLP 1975 mGy*cm. Findings: Evaluation of solid organs is limited due to lack of intravenous contrast use. Lung Bases: No acute or significant lung base finding. Normal heart size. No pleural or pericardial effusion. Liver: The liver is normal in size. No focal lesions. Gallbladder and Biliary Tree: Unremarkable Spleen: Unremarkable Pancreas: The pancreas is grossly normal in appearance. Adrenal Glands: Unremarkable Kidneys: Kidneys are grossly normal without calculi or hydronephrosis. Bladder: Grossly unremarkable for degree of distention. Bowel: The stomach is grossly normal in appearance. Small bowel and colon are normal in caliber and d istribution. The appendix is not visualized; however, no secondary findings of acute appendicitis id entified. Ascites: Absent Lymphadenopathy: No mesenteric, retroperitoneal or periportal lymphadenopathy. Abdominal Wall and Mesentery: Small fat containing umbilical hernia. Vasculature: The visualized abdominal aorta is normal in size and caliber. Evaluation of abdominal a nd pelvic vessels is limited due to lack of intravenous contrast. Pelvic Organs: Unremarkable Musculoskeletal: No aggressive focal bony lesions, acute fractures or dislocation. IMPRESSION: 1. No acute abdominal or pelvic findings. 2. Small fat containing umbilical hernia Radiation optimization: All CT scans at this facility use at least one of these dose optimization sandra hniques: automated exposure control mA and/or kV adjustment per patient size (includes targeted exam s where dose is matched to clinical indication) or iterative reconstruction.
[2024-12-08 17:25] LABS: BILIRUBIN,URINE NEGATIVE (Neg); CLARITY,URINE CLEAR (Clear); COLOR,URINE YELLOW (Yellow); GLUCOSE, URINE >=1000 mg/dl (Neg); KETONES,URINE 15 mg/dl (Neg); LEUKOCYTE ESTERASE ,URINE NEGATIVE (Neg); NITRITES, URINE NEGATIVE (Neg); OCCULT BLOOD,URINE NEGATIVE (Neg); PROTEIN,URINE NEGATIVE (Neg); UROBILINOGEN,URINE 0.2 E.U/dL (0.2-1.0)
[2024-12-08] MEDS: furosemide 20 MG/2 ML vial IV ONE (17:26)
[2024-12-08] MEDS: CefTRIAXone/D5W-Rocephin 1gm 50 ML IV ONE (17:27)
[2024-12-08 17:30] LABS: UA COLLECTION TYPE CLN CATCH MIDSTREAM
[2024-12-08 17:31] LABS: BACTERIA,URINE NONE SEEN /HPF (Neg); MUCUS STRANDS NONE SEEN /LPF (Neg); RBC,URINE 0-2 /HPF (0-2); SQUAMOUS EPITHELIAL CELL,UR NONE SEEN /LPF (FEW); WBC,URINE NONE SEEN /HPF (0-4)
[2024-12-08] MEDS ORDERED: mag hydrox/Alum hydrox/simeth 30ml oral suspension PO PRN (18:55)
[2024-12-08] MEDS ORDERED: magnesium sulf-water 4G/100mL 100 ML IV PRN (18:55)
[2024-12-08] MEDS ORDERED: ondansetron/PF 4mg/2ml inj IV PRN (18:55)
[2024-12-08] MEDS ORDERED: magnesium sulf-water 2g/50mL 50 ML IV PRN (18:55)
[2024-12-08] MEDS ORDERED: acetaminophen 325mg tablet PO PRN (18:55)
[2024-12-08] MEDS ORDERED: potassium Cl 40MEQ/1/2NS 520ml 520 ML IV PRN (18:55)
[2024-12-08] MEDS ORDERED: potassium Cl 20 mEq SR tablet PO PRN ×2 (18:55)
[2024-12-08] MEDS ORDERED: bisacodyl 10mg suppository rectal RC PRN (18:55)
[2024-12-08] MEDS ORDERED: glucagon, human recombinant 1mg kit SUBCUT PRN (19:05)
[2024-12-08] MEDS ORDERED: DEXTROSE 15 GM of carb/4 tabs (each vial/BOTTLE has 4 tablets) PO PRN ×2 (19:05)
[2024-12-08] MEDS ORDERED: dextrose 50%-water 50ml dispensing syringe IV PRN ×2 (19:05)
[2024-12-08] MEDS ORDERED: GABA-530 PO (19:08)
--- NOTE | 2024-12-08 19:10 | HISTORY AND PHYSICAL ---
History & Physical Providers to CC ~ History of Present Illness Reason for Admit\Complaint: Fatigue was slurred speech and gustafson in cognition History of Present Illness This is a 61-year-old transgender male transitioned to a female the process started five years ago the patient is on weekly estrogen tablets - states for the past two weeks they have felt very weak and fatigued the RN still very heavy. Noticed intermittent slurred speech with experiencing the cessation of h aving there head is in the clouds. They have noticed that the arms are very heavy as well. The troponins are negative proBNP slightly elevated 131 the patient has a mildly elevated white blood cell count. I have ordered an MRI of the brain and a CTA of the head and neck hose well as echocardiogram to evaluate for CHF. The patient is admitted on mechanical project manager and physical therapy is ordered. Allergies: Coded Allergies: Penicillins (Unverified Allergy, Severe, PT REPORTS DEADLY REACTION, 09/26/24) TOLERATED CEFEPIME 08/2024 Last reaction >5 years, angioedema, required treatment metformin (Verified Allergy, Severe, hives, 09/26/24) vancomycin (Verified Allergy, Severe, anaphylaxis, 09/26/24) eyes burning and swelling as well as chest tightness codeine (Verified Adverse Reaction, Unknown, VOMITING, 09/26/24) Uncoded Allergies: cooked peas (Allergy, Intermediate, 12/28/09) pt with extreme emesis for >1 week Home Medications Home Medications Active Lisinopril 20 Mg Tablet 1 Tab PO DAILY 30 Days Mupirocin (Mupirocin Calcium) 2 % Cream..g. 1 Applic TOP Q8H 10 Days Hibiclens (Chlorhexidine Gluconate) 4 % Liquid 1 Applic TOP DAILY 7 Days DIRECTED Culturelle (Lactobacillus Rhamnosus) 10 Billion Cell Capsule 1 Cap PO DAILY 30 Days PROTONIX tablet (Pantoprazole Sodium) 40 Mg Tablet.dr 40 Mg PO DAILY 30 Days Reported Ozempic (Semaglutide) 1 Mg/0.75 Ml (4 Mg/3 Ml) Pen.injctr 1 Ml SQ Q7D Insulin Lispro Kwikpen U-100 (Insulin Lispro) 100 Unit/Ml Insuln.pen SQ Tizanidine Hcl 2 Mg Capsule 1 Humulin R U-500 Kwikpen (Insulin Regular, Human) 500/Ml (3) Insuln.pen SQ Fluoxetine Hcl 40 Mg Capsule 1 Cap PO QAM Gabapentin 100 Mg Capsule 1 Cap PO TID Steglatro (Ertugliflozin Pidolate) 15 Mg Tablet 1 Tab PO QAM Atarax* (Hydroxyzine HCl) 25 Mg Tablet 1 Tab PO Q4H PRN Celecoxib 100 Mg Capsule 1 Cap PO DAILY Viagra* (Sildenafil Citrate) 100 Mg Tablet 1 Tab PO QDAY PRN Epipen 2-Kiko (Epinephrine HCl) 0.3 Mg/0.3 Ml Auto.injct 1 Syr IM ONCE 1 Days Zoloft (Sertraline Hcl) 100 Mg Tablet 1 Tab PO DAILY 30 Days Spironolactone 100 Mg Tablet 1 Tab PO DAILY 30 Days Depo-Estradiol (Estradiol Cypionate) 5 Mg/1 Ml Vial 0.3 Ml IM Q7D Atorvastatin Calcium 20 Mg Tablet 1 Tab PO DAILY 30 Days Proair Hfa (Albuterol Sulfate) 1 Puff Inh 2 Puffs IH Q4H PRN Past Medical History Past Medical History Hypertension, asthma, sleep apnea on CPAP, diabetes mellitus, chronic pain syndrome Past Surgical History Surgical History Comment Tympanostomy tubes, appendectomy, umbilical hernia repair x2, pilonidal cyst removal Family History Family History: Unknown family medical history Past Social History Social History Comment The patient does not smoke, drink alcohol or use illicit drugs. Full code status ROS ROS Except for positives in the HPI the rest of the 14 point review systems is negative Exam Vitals: Vital Signs Date Time Temp Pulse Resp B/P (MAP) Pulse Ox O2 Delivery O2 Flow Rate FiO2 12/08/24 16:04 80 18 137/83 (101) 100 12/08/24 13:10 0 12/08/24 12:22 97.8 General: Gen. No acute distress alert and oriented 4, morbidly obese Lungs clear to ascultation bilaterally, no wheezes rales or rhonchi appreciated Heart normal sinus rhythm no murmurs rubs or clicks noted Abdomen soft nontender bowel sounds are normoactive Lower extremities no clubbing cyanosis, nor edema appreciated bilaterally Diagnostic Data Last Recorded Lab Results: 12/08/24 1255 12/08/24 1255 Diagnostic Data: Laboratory Tests Test 12/08/24 12:55 Prothrombin Time 11.1 SECONDS (9.0-12.0) INR International Normalized Ratio 1.1 INR Activated Partial Thromboplast Time 29 SECONDS (22-32) Coagulation Comments Advance Care Planning Advanced Care plannin - 30 Minutes Problems: (1) Generalized weakness Status: Acute Additional Plan # fatigue possibly secondary to acute CHF proBNP is mildly elevated 131 and the patient has cardiomegaly on chest x-ray echocardiogram is ordered # slurred speech with mild encephalopathy intermittent- note the patient is able to speak in full sentences without any signs of focal deficits or slurred speech a MRI of the head and and a CTA of the head and neck # obstructive sleep apnea CPAP at night # leukocytosis-UA is negative for UTI Start empiric Rocephin # [id number] diabetes mellitus and a hyper and hypoglycemic protocol # transgender therapy patient Hold estrogen for now as this is thrombogenic. DVT prophylaxis SCDs and SQ Lovenox I spent a total of 17 minutes on reviewing various resuscitative measures/ ACP with the patient at the time of admission. The patient has decided on a full code status Date of Service: December 08, 2024 Billing Provider: JASMIN TARIQ DO Common Visit Codes: 65160-[id number] INP/OBS CARE (HIGH) Secondary Visit Codes: 63828-[id number] CARE PLAN 30 MINUTES JASMIN TARIQ DO December 08, 2024 19:10
[2024-12-08] MEDS ORDERED: PIOG15TA8 PO (19:11)
[2024-12-08] MEDS ORDERED: LORA10TA7 PO (19:11)
[2024-12-08] MEDS ORDERED: iohexol 350MG/ML 100ml bottle IV ONE (19:16)
[2024-12-08] MEDS: PERFLUTREN PROTEIN-A MICROSPHR (Optison) 0.22 MG/ML 3ML VIAL IV ONE (19:20)
[2024-12-08 19:35] LABS: HEMOGLOBIN A1C 7.6 % (4.5-6.2)
[2024-12-08] MEDS ORDERED: LISI20TA28 PO (19:39)
[2024-12-08] MEDS ORDERED: MONT-40 PO (19:43)
[2024-12-08] MEDS: docusate sod 100mg capsule PO SCH (20:00)
[2024-12-08] MEDS: K and/or MAG REPLACEMENT MC SCH (20:00)
--- NOTE | 2024-12-08 20:18 | RADIOLOGY REPORT ---
INDICATION: Slurred speach with change in cognition COMPARISON: CT head 12/08/2024 TECHNIQUE:CTA head and neck with intravenous contrast. 3D/MIP image postprocessing was performed and images were used for interpretation and reporting. Radiation Dose Information: CT Dose: CTDI volume is 34 mGy. Dose-length product is 814.54 mGy*cm FINDINGS: CTA neck: Normal 3-vessel origin left-sided aortic arch. The bilateral subclavian arteries ARE unremarkable. Minimal atherosclerotic calcification of the carotid bulbs without hemodynamically significant stenos is. Otherwise, the bilateral common carotid arteries AND bilateral cervical ICAs are unremarkable. Bilateral cervical vertebral arteries are unremarkable CODOMINANT. CTA head: Bilateral ICAs and anterior communicating artery are unremarkable. Bilateral MCAs are unremarkable. M inimal focus of atherosclerotic calcification over the right cavernous ICA. Otherwise, bilateral int racranial ICAs are unremarkable. Bilateral jewel hole finish opener, bilateral superior cerebellar arteries, basilar artery and bilateral intracranial lara tebral arteries unremarkable. Dural venous sinuses opacify normally. No abnormal intracranial enhancement. Mucous retention cysts within the bilateral maxillary sinuses and left sphenoid sinus the thyroid gla nd is unremarkable. The lung apices are clear. No acute bony abnormalities. Midline suboccipital fat stranding.. IMPRESSION: No Hemodynamically significant stenosis or dissection involving the major intracranial and neck vesse ls.
[2024-12-08] MEDS ORDERED: INSU500I SQ ×2 (20:22)
[2024-12-08] MEDS ORDERED: INSU100I29 SQ (20:24)
[2024-12-08] MEDS: enoxaparin 40mg/0.4ml syringe SQ SCH (22:11)
[2024-12-08] MEDS: INSULIN LISPRO 100 UNIT/ML INSULN.PEN MULTI-DOSE SQ SCH (22:13)
[2024-12-09 03:53] LABS: BASOPHILS # (AUTO) 0.1 X10'3 (0-0.2); BASOPHILS % (AUTO) 0.5 % (0-1); EOSINOPHILS # (AUTO) 0.2 X10'3 (0-0.9); EOSINOPHILS % (AUTO) 1.5 % (0-6); HEMATOCRIT 41.6 % (42.0-52.0); HEMOGLOBIN 13.9 g/dl (14.0-17.9); LYMPHOCYTES # (AUTO) 2.3 X10'3 (1.1-4.8); LYMPHOCYTES % (AUTO) 18.8 % (21-51); MEAN CORPUSCULAR HEMOGLOBIN 30.4 PG (27.0-31.0); MEAN CORPUSCULAR HGB CONC 33.4 g/dL (33.0-36.5); MEAN CORPUSCULAR VOLUME 90.8 FL (78-98); MEAN PLATELET VOLUME 6.9 FL (7.4-10.4); MONOCYTES # (AUTO) 0.7 X10'3 (0-0.9); NEUTROPHILS # (AUTO) 8.8 X10'3 (1.8-7.7); NEUTROPHILS % (AUTO) 73.2 % (42-75); PLATELET COUNT 316 X10'3 (140-440); RED BLOOD COUNT 4.58 X10'6 (4.70-6.10); RED CELL DISTRIBUTION WIDTH 14.9 % (11.5-14.5); WHITE BLOOD COUNT 12.1 X10'3 (4.5-11.0)
[2024-12-09 04:17] LABS: ALANINE AMINOTRANSFERASE 23 U/L (12-78); ALBUMIN 3.6 G/DL (3.4-5.0); ALBUMIN/GLOBULIN RATIO 0.9 (1.1-1.5); ALKALINE PHOSPHATASE 75 IU/L (46-116); ANION GAP 13 (8-16); ASPARTATE AMINO TRANSFERASE 9 U/L (10-37); BILIRUBIN,TOTAL 0.5 MG/DL (0.1-1.0); BLOOD UREA NITROGEN 11 MG/DL (7-18); CALCIUM 8.6 MG/DL (8.5-10.1); CHLORIDE 102 MMOL/L (99-107); CHOL/HDL RATIO 3.6 (0.00-4.99); CHOLESTEROL 122 MG/DL (0-200); CREATININE 0.92 MG/DL (0.60-1.10); GLUCOSE 123 MG/DL (70-104); HDL CHOLESTEROL 34 MG/DL (35-60); LDL CHOLESTEROL 76 MG/DL (50-100); POTASSIUM 4.1 MMOL/L (3.5-5.1); SODIUM 135 MMOL/L (135-145); THYROID STIMULATING HORMONE 2.04 ulU/ml (0.34-4.50); TOTAL CARBON DIOXIDE 19.6 MMOL/L (24-32); TOTAL PROTEIN 7.5 G/DL (6.4-8.2); TRIGLYCERIDES 92 MG/DL (20-135); eCRCL 97 ML/MIN; eGFR 86 ML/MIN
[2024-12-09] MEDS: ketorolac trometh 15mg/ml vial 15 MG/ML ML IV ONE (04:56)
[2024-12-09 07:37] VITALS: TEMP 97.8
[2024-12-09] MEDS: CefTRIAXone/D5W-Rocephin 1gm 50 ML IV SCH (09:15)
[2024-12-09] MEDS: LORazepam 2 mg/ml vial IV ONE (10:00)
--- NOTE | 2024-12-09 10:15 | [facility] NEURO CONSULT REPORT ---
[facility] Procedure Note [facility] Procedure Note Consult [facility] Note # Demographics Consult Type: General Neurology Patient Location: Inpatient First Name: Parker Last Name: Kezia Date of : 1970 Age: 54 Gender: Male Facility: [facility] Time of Initial Page (): 12/09/2024 10:02 Time of Return Call (): 12/09/2024 10:03 # HPI History: Not feeling well. Here sunday for brain fog thought to be related to a new medication. Also some slurred noted. # Scores Level of Consciousness 1a: [0] = Alert; keenly responsive LOC Questions 1b: [0] = Answers both questions correctly LOC Commands 1c: [0] = Performs both tasks correctly Best Gaze 2: [0] = Normal Visual 3: [0] = No visual loss Facial Palsy 4: [0] = Normal symmetrical movements Motor Arm Left 5a: [0] = No drift Motor Arm Right 5b: [0] = No drift Motor Leg Left 6a: [0] = No drift Motor Leg Right 6b: [0] = No drift Limb Ataxia 7: [0] = Absent Sensory 8: [0] = Normal Best Language 9: [0] = No aphasia Dysarthria 10: [0] = Normal Extinction and Inattention 11: [0] = No abnormality NIHSS Total: 0 # PMH-FH-SH Past Medical History: Male--> Female transition Medications: estrogen # Data Head CT: - no bleed - per radiologist read CTA Head: - no large vessel occlusion - per radiologist read # Assessment Impression: No focal deficits. check for toxometabolic causes. If no etiology and perisstent sx then mri brain may be helpful for dx. # Plan Labs: - ua Other: - If patient has any neurological deterioration please call me back immediately - I have discussed my recommendations with the referring provider - would not pursue stroke work-up if MRI is negative # Logistics Attestation of consult completion: The patient is located at: [facility]. Facility staff participated in the visit. I performed this telemedicine visit from my offsite office utilizing interactive 2 way audio and visual telecommunication technology. Total time spent in telemedicine encounter: I spent 21 minutes reviewing clinical data and/or imaging, obtaining history, examining the patient, communicating with the onsite care team, and in preparation of this report. # Demographics First Name: Parker Last Name: [facility] Facility: [facility] Electronically signed at 12/09/2024 10:14 (Edgar Time) by Ranjith Aden MD Neuro Consult Order placed for: Yes SALLY ADEN MD December 09, 2024 10:15
[2024-12-09] MEDS: LORazepam 1 MG tablet PO PRN (11:27)
[2024-12-09 17:05] VITALS: BP 130/87; PULSE 99; RESP 18; O2SAT 97
--- NOTE | 2024-12-09 21:32 | CARDIOLOGY REPORT ---
APPROVED REPORT EXAM: Comprehensive 2D, Doppler, and color-flow Echocardiogram. Patient Location: ER7 Blood Pressure: 130/87 mmHg Heart Rate: 94 bpm Rhythm: SINUS Indications CONGESTIVE HEART FAILURE Cartridge Loader: NONE Previous echo: NONE 2D Dimensions RVDd 3.2 cm LVOT Diameter 2.16 (1.8-2.4cm) CO 6.8 L/min M-Mode Dimensions Left Atrium(MM) 3.79 (2.5-4.0cm) IVSd 1.54 (0.7-1.1cm) LVDd 4.61 (4.0-5.6cm) Aortic Root 3.89 (2.2-3.7cm) PWd 1.92 (0.7-1.1cm) Aortic Cusp Exc 2.47 (1.5-2.0cm) IVSs 2.40 cm MV EPSS 1.1 (<0.5cm) LVDs 2.55 (2.0-3.8cm) FS (%) 45 % PWs 2.02 cm ESV(Teich) 23.4 ml LVEF(%) 76 (>50%) Aortic Valve AoV Peak Eugene. 147.1 cm/s AoV VTI 21.5 cm AO Peak GR. 8.7 mmHg AO Mean GR. 5 mmHg LVOT VTI 12.00 cm LVOT Peak Eugene. 85.0 cm/s PATRICIA (VMAX) 2.11 cm2 PATRICIA (VTI) 2.11 cm2 Mitral Valve MV E Velocity 86.7 cm/s MV DECEL TIME 152 ms MV A Velocity 85.4 cm/s MV PHT 87 ms E/A Ratio 1.0 MVA (PHT) 2.85 cm2 LEFT VENTRICLE Normal LV size and function. Mild concentric hypertrophy. LVEF is 65-70%. RIGHT VENTRICLE RV is normal size and function. ATRIA The left atrium size is normal. AORTIC VALVE Trileaflet AV appears minimally sclerotic without stenosis or insufficiency. MITRAL VALVE Mild MV annular calcification without stenosis. Trace regurgitation. TRICUSPID VALVE TV appears structurally normal with trace regurgitation. PULMONIC VALVE Pulmonic valve is not well visualized. GREAT VESSELS Aortic root is mildly dilated. Ascending aorta is normal in size. PERICARDIUM Normal pericardium. No effusion. Prominent anterior epicardial fat pad. Other Information Study Quality: Technically Difficult due to habitus. Poor apical window Conclusion Normal LV size and function. Mild concentric hypertrophy. LVEF is 65-70%. RV is normal size and function. The left atrium size is normal. Trileaflet AV appears minimally sclerotic without stenosis or insufficiency. Mild MV annular calcification without stenosis. Trace regurgitation. TV appears structurally normal with trace regurgitation. Aortic root is mildly dilated. Normal pericardium. No effusion. Prominent anterior epicardial fat pad.
--- NOTE | 2024-12-09 21:33 | DISCHARGE SUMMARY ---
Discharge Summary Providers to CC ~ Discharge Summary Admission Diagnosis: Encephalopathy/ fatigued Hospital Course DATE OF ADMISSION: 12/08/2024 DATE OF DISCHARGE: 12/09/2024 Discharge Diagnosis\Comment: Generalized fatigue- CHF ruled out, slurred speech not secondary to CVA, obstructive sleep apnea, leukocytosis, [id number] diabetes mellitus, gender reassignment patient Operations\Procedures: None Consultants: Dr. Yosef Alvarado tele neurology Complications: None Condition on DC: Stable Continued Medications: Atorvastatin Calcium (Atorvastatin Calcium) 20 Mg Tablet 1 TAB PO DAILY for 30 Days, #30 TAB Celecoxib (Celecoxib) 100 Mg Capsule 1 CAP PO DAILY for PAIN Ertugliflozin Pidolate (Steglatro) 15 Mg Tablet 1 TAB PO QAM Fluoxetine Hcl (Fluoxetine Hcl) 40 Mg Capsule 1 CAP PO QAM Gabapentin (Gabapentin) 100 Mg Capsule 1 CAP PO QID for 30 Days, #90 CAP 0 Refills Hydroxyzine Hcl* (Atarax*) 25 Mg Tablet 1 TAB PO Q4H PRN for itching Insulin Degludec (Tresiba Flextouch U-100) 100 Unit/Ml (3 Ml) Insuln.pen 80 UNITS SQ DAILY Insulin Regular, Human (Humulin R U-500 Kwikpen) 500/Ml (3) Insuln.pen 80 UNIT SQ BKF Insulin Regular, Human (Humulin R U-500 Kwikpen) 500/Ml (3) Insuln.pen 50 SQ WL Insulin Regular, Human (Humulin R U-500 Kwikpen) 500/Ml (3) Insuln.pen 30 SQ WS Lisinopril (Lisinopril) 20 Mg Tablet 1 TAB PO DAILY for 30 Days, #30 TAB Loratadine (Loratadine) 10 Mg Tablet 10 MG PO DAILY, #30 TAB Montelukast Sodium (Montelukast Sodium) 10 Mg Tablet 1 TAB PO DAILY Pioglitazone Hcl* (Actos*) 15 Mg Tablet 1 TAB PO DAILY for 30 Days, #30 TAB Tizanidine Hcl (Tizanidine Hcl) 2 Mg Capsule 1 Discharge Summary: I admitted the patient with the following HPI:This is a 61-year-old transgender male transitioned to a female the process started five years ago the patient is on weekly estrogen tablets - states for the past two weeks they have felt very weak and fatigued the RN still very heavy. Noticed intermittent slurred speech with experiencing the cessation of having there head is in the clouds. They have noticed that the arms are very heavy as well. The troponins are negative proBNP slightly elevated 131 the patient has a mildly elevated white blood cell count. I have ordered an MRI of the brain and a CTA of the head and neck as well as echocardiogram to evaluate for CHF. The patient is admitted on color television console monitor and physical therapy is ordered. The CTA of the head and neck were unremarkable no significant stenosis was found the patient can not fit in the MRI machine echocardiogram was obtained and I spoke to the [place] with the patient was having the echocardiogram the patient is LVEF is within normal limits and there were no significant valvular issues or other concerns found an echocardiogram. The patient could not fit in an MRI machine and after speaking with the patient on the the patient states that his speech was slurred this is mouth was dry the patient does have anxiety and depression and this likely has a cause of the patients various neurological complaints The patient has a evaluation with Dr. Yosef Alvarado in the tele neurologist who assessed that the patient did not have a CVA. Gen. No acute distress alert and oriented 4, morbidly obese Lungs clear to ascultation bilaterally, no wheezes rales or rhonchi appreciated Heart normal sinus rhythm no murmurs rubs or clicks noted Abdomen soft nontender bowel sounds are normoactive Lower extremities no clubbing cyanosis, nor edema appreciated bilaterally The patient felt ready to be discharged and was medically cleared to be discharged on 12/09/2024 The patient was seen and evaluated on day of discharge. Time spent on discharge 35 minutes The patient recovered sooner than to be expected with stroke-like symptoms *Problems/Diagnosis: (1) Generalized weakness Status: Acute Total Time Spent on D/C: > 30 Minutes Date of Service: December 09, 2024 Billing Provider: JASMIN TARIQ DO Common Visit Codes: 64794-XVS/OBS DISCH DAY >30min JASMIN TARIQ DO December 09, 2024 21:32
== END 2024-12-09 20:54 | disposition home or self-care (01) | DRG 52 ==
LOC: ER 12:15 → ED HOLD 19:02
PROVIDERS: ADMIT Family Medicine; ATTEND Family Medicine
PROC: B3251ZZ Computerized Tomography (CT Scan) of Bilateral Common Carotid Arteries using Low Osmolar Contrast (ICD-10-PCS; principal; 2024-12-08)
PROC: B32G1ZZ Computerized Tomography (CT Scan) of Bilateral Vertebral Arteries using Low Osmolar Contrast (ICD-10-PCS; 2024-12-08)
PROC: B32R1ZZ Computerized Tomography (CT Scan) of Intracranial Arteries using Low Osmolar Contrast (ICD-10-PCS; 2024-12-08)
PROC: B3281ZZ Computerized Tomography (CT Scan) of Bilateral Internal Carotid Arteries using Low Osmolar Contrast (ICD-10-PCS; 2024-12-08)
DX: G93.49 Other encephalopathy (principal); D72.829 Elevated white blood cell count, unspecified; E11.9 Type 2 diabetes mellitus without complications; F41.9 Anxiety disorder, unspecified; F32.A Depression, unspecified; G89.4 Chronic pain syndrome; I10 Essential (primary) hypertension; G47.33 Obstructive sleep apnea (adult) (pediatric); J45.909 Unspecified asthma, uncomplicated; Z88.0 Allergy status to penicillin; Z79.4 Long term (current) use of insulin; Z88.1 Allergy status to other antibiotic agents; Z88.8 Allergy status to other drugs, medicaments and biological substances; Z88.5 Allergy status to narcotic agent; Z91.018 Allergy to other foods; Z79.899 Other long term (current) drug therapy
CPT/HCPCS: 36415; 70450; 70496; 70498; 71045; 74176; 80053; 80061; 81001; 82140; 82948; 83036; 83605; 83735; 83880; 84145; 84443; 84484; 85025; 85610; 85730; 87040; 87081; 93005; 96361; 96365; 96372; 96375; 99285; G0378; J0696; J1650; J1815; J1885; J1938; J7030; Q9967

== ENCOUNTER 2025-01-06 08:15 | Emergency (ER) | payer MEDICAID ==
[~2025-01-06] VITALS: Ht 177.8 cm; Wt 155.1 kg
[~2025-01-06 08:15] MED LIST changes: -ALBU8.5H17 IH; -CHLO118L TOP; -DEP5I IM; -EPIN0.3P3 IM; +INSU100I29 SQ; -INSU100I61 SQ; -LACT1CAP26 PO; +LORA10TA7 PO; +MONT-40 PO; -MUPI15CR12 TOP; -PANT-47 PO; +PIOG15TA8 PO; -SEMA1PEN3 SQ; -SERT100T PO; -SILD100T PO; -SPIR100T5 PO
[2025-01-06 08:25] VITALS: BP 167/86; PULSE 88; RESP 18; O2SAT 97
[2025-01-06] MEDS ORDERED: SULF1TAB49 PO (09:22)
[2025-01-06] MEDS ORDERED: CEPH-585 PO (09:22)
--- NOTE | 2025-01-06 09:22 | Physician Documentation ---
History of Present Illness ~ Chief Complaint: Abscess Stated Complaint: WOUND CHECK Time Seen by MD: 09:02 Primary Medical Doctor: KEENAN GALVIN The 4-year-old male with a chronic history of ingrown hairs presents with a complaint of the developing abscess on his right forearm. States it is currently draining. denies Fevers. Tetanus Within 5 Years: No Medication Reconciliation Allergies: Coded Allergies: Penicillins (Unverified Allergy, Severe, PT REPORTS DEADLY REACTION, 09/26/24) TOLERATED CEFEPIME 08/2024 Last reaction >5 years, angioedema, required treatment metformin (Verified Allergy, Severe, hives, 09/26/24) vancomycin (Verified Allergy, Severe, anaphylaxis, 09/26/24) eyes burning and swelling as well as chest tightness codeine (Verified Adverse Reaction, Unknown, VOMITING, 09/26/24) Uncoded Allergies: cooked peas (Allergy, Intermediate, 12/28/09) pt with extreme emesis for >1 week Scheduled Atorvastatin Calcium (Atorvastatin Calcium), 1 TAB PO DAILY, (Reported) Celecoxib (Celecoxib), 1 CAP PO DAILY, (Reported) Ertugliflozin Pidolate (Steglatro), 1 TAB PO QAM, (Reported) Fluoxetine Hcl (Fluoxetine Hcl), 1 CAP PO QAM, (Reported) Gabapentin (Gabapentin), 1 CAP PO QID, (Reported) Insulin Degludec (Tresiba Flextouch U-100), 80 UNITS SQ DAILY, (Reported) Insulin Regular, Human (Humulin R U-500 Kwikpen), 80 UNIT SQ BKF, (Reported) Insulin Regular, Human (Humulin R U-500 Kwikpen), 50 SQ WL, (Reported) Insulin Regular, Human (Humulin R U-500 Kwikpen), 30 SQ WS, (Reported) Lisinopril (Lisinopril), 1 TAB PO DAILY, (Reported) Loratadine (Loratadine), 10 MG PO DAILY, (Reported) Montelukast Sodium (Montelukast Sodium), 1 TAB PO DAILY, (Reported) Pioglitazone Hcl* (Actos*), 1 TAB PO DAILY, (Reported) Scheduled PRN Hydroxyzine Hcl* (Atarax*), 1 TAB PO Q4H PRN for itching, (Reported) Miscellaneous Medications Tizanidine Hcl (Tizanidine Hcl), 1, (Reported) Past Medical History Past Medical History: Hypertension, Asthma, Bronchitis, Sleep Apnea, Hernia, Diabetes, Chronic Pain Past Surgical History: abdominal surgery, other Other Past Surgical History: hernia repair, interssuception, C. diff colitis Patient History: Unknown family medical history Alcohol Use: None Drug Use: none Lives with: Family Lives In: Home Occupation: unemployed Review of Systems All Other Systems at this time: Reviewed and Negative ROS As stated above in the HPI, otherwise all systems are reviewed and negative. Physical Exam Vital Signs: Temperature: 98.1, Source: Temporal, Heart Rate: 88, Respiratory Rate: 18, BP: 167/86, Pulse Oximetry: 97, Weight: 155.100 Physical Exam General: Alert, no apparent distress. Extremities: Normal range of motion, no deformity. small absces right forearm 2cm. Neurologic: Oriented x4. Psychiatric: Normal mood and affect. Skin: Normal color, warm and dry. No edema, no ecchymosis. Progress Results/Orders Results/Orders Vital Signs 01/06/25 08:25 Temp 98.1 Pulse 88 Resp 18 B/P (MAP) 167/86 Pulse Ox 97 Medical Decision Making Findings Going to start patient on oral antibiotic, present acutely ill and remains nontoxic. Differential Dx:Considerations: Include: Abscess, Bacteremia, Cellulitis, Erysipelas, Felon, Gas gangrene, Hidrademitis suppurativa, Impetigo, Lymphang itis, Osteromyelitis, Paronychia, Septicemia, Other Departure Disposition: 01 HOME / SELF CARE / HOMELESS Impression: Primary Impression: Abscess Additional Impression: Wound abscess Condition: Stable Discharge Instructions: Abscess, Care After Referrals: NO PRIMARY CARE PROVIDER (PCP) Prescriptions Cephalexin*Monohydrate* (Keflex*) 500 Mg Capsule 1 CAP PO QID, #40 CAP Prov: ALEKS ORTEGA POLICE SUPERINTENDENT 01/06/25 Sulfamethoxazole/Trimethoprim (Bactrim Ds Tablet) 800 Mg-160 Mg Tablet 1 TAB PO Q12H for 10 Days, #20 TAB Prov: ALEKS ORTEGA POLICE SUPERINTENDENT 01/06/25 Signature Scribe Signature: t Attestation: Scribed for Aleks Ortega Didactic Instructor by Aleks Muñiz NP . 01/06/25 09:23 ALEKS ORTEGA NP Jan 06, 2025 09:22
[2025-01-06 09:58] VITALS: TEMP 98.1
== END 2025-01-06 09:59 | disposition home or self-care (01) ==
LOC: ER 08:15
DX: L02.413 Cutaneous abscess of right upper limb (principal); T81.49XA Infection following a procedure, other surgical site, initial encounter; E11.9 Type 2 diabetes mellitus without complications; G47.30 Sleep apnea, unspecified; I10 Essential (primary) hypertension; J45.909 Unspecified asthma, uncomplicated; Z88.0 Allergy status to penicillin; Z88.1 Allergy status to other antibiotic agents; Z88.5 Allergy status to narcotic agent; Z88.8 Allergy status to other drugs, medicaments and biological substances; Z98.890 Other specified postprocedural states; Y92.89 Other specified places as the place of occurrence of the external cause
CPT/HCPCS: 99283

== ENCOUNTER 2025-02-28 03:02 | Emergency (ER) | payer MEDICAID ==
[~2025-02-28] VITALS: Ht 177.8 cm; Wt 155.2 kg
[~2025-02-28 03:02] MED LIST changes: +CEPH-585 PO
[2025-02-28 03:08] VITALS: TEMP 97.6
[2025-02-28] MEDS ORDERED: HYDR-3973 PO (03:48)
--- NOTE | 2025-02-28 03:50 | Physician Documentation ---
History of Present Illness ~ Chief Complaint: Back Pain Stated Complaint: LEG PAIN Time Seen by MD: 03:32 Primary Medical Doctor: [facility] HPI 54 year old male with low back pain radiating down both legs, L>R, with numbness down back of L leg. Denies fever, incontinence, history of IVDU, paralysis of limbs. Medication Reconciliation Allergies: Coded Allergies: Penicillins (Unverified Allergy, Severe, PT REPORTS DEADLY REACTION, 02/28/25) TOLERATED CEFEPIME 08/2024 Last reaction >5 years, angioedema, required treatment metformin (Verified Allergy, Severe, hives, 02/28/25) vancomycin (Verified Allergy, Severe, anaphylaxis, 02/28/25) eyes burning and swelling as well as chest tightness codeine (Verified Adverse Reaction, Unknown, VOMITING, 02/28/25) Uncoded Allergies: cooked peas (Allergy, Intermediate, 12/28/09) pt with extreme emesis for >1 week Scheduled Atorvastatin Calcium (Atorvastatin Calcium), 1 TAB PO DAILY, (Reported) Celecoxib (Celecoxib), 1 CAP PO DAILY, (Reported) Cephalexin*Monohydrate* (Keflex*), 1 CAP PO QID Ertugliflozin Pidolate (Steglatro), 1 TAB PO QAM, (Reported) Fluoxetine Hcl (Fluoxetine Hcl), 1 CAP PO QAM, (Reported) Gabapentin (Gabapentin), 1 CAP PO QID, (Reported) Insulin Degludec (Tresiba Flextouch U-100), 80 UNITS SQ DAILY, (Reported) Insulin Regular, Human (Humulin R U-500 Kwikpen), 80 UNIT SQ BKF, (Reported) Insulin Regular, Human (Humulin R U-500 Kwikpen), 50 SQ WL, (Reported) Insulin Regular, Human (Humulin R U-500 Kwikpen), 30 SQ WS, (Reported) Lisinopril (Lisinopril), 1 TAB PO DAILY, (Reported) Loratadine (Loratadine), 10 MG PO DAILY, (Reported) Montelukast Sodium (Montelukast Sodium), 1 TAB PO DAILY, (Reported) Pioglitazone Hcl* (Actos*), 1 TAB PO DAILY, (Reported) Scheduled PRN Hydroxyzine Hcl* (Atarax*), 1 TAB PO Q4H PRN for itching, (Reported) Miscellaneous Medications Tizanidine Hcl (Tizanidine Hcl), 1, (Reported) Past Medical History Past Medical History: Hypertension, Asthma, Bronchitis, Sleep Apnea, Hernia, Diabetes, Chronic Pain Past Surgical History: abdominal surgery, other Other Past Surgical History: hernia repair, interssuception, C. diff colitis Patient History: Unknown family medical history Alcohol Use: None Drug Use: none Lives with: Family Lives In: Home Occupation: unemployed Review of Systems All Other Systems at this time: Reviewed and Negative Physical Exam Physical Exam Vital Signs: RN Vital Signs have been reviewed: Yes, Temperature: 97.6, Source: Temporal, Heart Rate: 80, Respiratory Rate: 15, Pulse Oximetry: 98, Weight: 155.200 Physical Exam HEENT: PERRL, moist oral mucosa, EOMI Pulmonary: No respiratory distress MSK: no deformity Skin: w/d/i, no rash Neuro: alert, nonfocal Psych: normal affect Progress Results/Orders Results/Orders Orders - MELANIE GUNDERSON MD Ketorolac Trometh 30mg/Ml Vial (Toradol (02/28/25 03:45) Hydrocodone/Apap 10/325 ([place] 10/325mg (02/28/25 03:45) Vital Signs 02/28/25 03:08 Temp 97.6 Pulse 80 Resp 15 Pulse Ox 98 Medical Decision Making Findings 54 year old male with low back pain that appears consistent with slipped disc or lumbar radiculopathy rather than sciatic nerve pain. Rx pain meds and return precautions, no red flags, ambulatory. Differential Dx:Considerations: Include: DJD, Fracture, Musculoskeletal pain, Urolithiasis Departure Disposition: HOME / SELF CARE / HOMELESS Impression: Primary Impression: Lumbosacral radiculopathy Condition: Stable Discharge Instructions: Acute Back Pain, Adult Referrals: NO PRIMARY CARE PROVIDER (PCP) Prescriptions Hydrocodone Bit/Acetaminophen (Hydrocodone-Apap 10-325 Tablet) 10mg/325mg Tablet 1 TABLET PO Q4H PRN for pain, #16 TABLET Prov: MELANIE GUNDERSON MD 02/28/25 Education Educated: Patient, Family Educated regarding: diagnosis, treatment, prognosis, need for follow up Signature Scribe Signature: . Attestation: . MELANIE GUNDERSON MD Feb 28, 2025 03:50
[2025-02-28] MEDS: ketorolac trometh 30MG/ML vial 30 MG/ML VIAL IM ONE (04:03)
[2025-02-28] MEDS: HYDROcodone/acetaminophen 10/325mg tab PO ONE (04:03)
[2025-02-28 04:07] VITALS: BP 164/88; PULSE 68; RESP 16; O2SAT 98
== END 2025-02-28 04:09 | disposition home or self-care (01) ==
LOC: ER 03:03
DX: M51.17 Intervertebral disc disorders with radiculopathy, lumbosacral region (principal); E11.9 Type 2 diabetes mellitus without complications; G47.30 Sleep apnea, unspecified; I10 Essential (primary) hypertension; J45.909 Unspecified asthma, uncomplicated; Z88.0 Allergy status to penicillin; Z88.1 Allergy status to other antibiotic agents; Z88.5 Allergy status to narcotic agent; Z88.8 Allergy status to other drugs, medicaments and biological substances; Z98.890 Other specified postprocedural states
CPT/HCPCS: 96372; 99283; J1885